=== PATIENT | female | born 1935 | race Caucasian/White ===

== ENCOUNTER → 2019-06-27 17:19 | Outpatient (BNVA) | payer MEDICARE, OTHER, SELFPAY | PROVIDERS: Family Provider Nurse Practitioner Family; Visit Provider Nurse Practitioner Family | DX: I10 Essential (primary) hypertension (principal); Z79.01 Long term (current) use of anticoagulants | CPT/HCPCS: 80053; 80061; 84443; 85025; 85610 ==

== ENCOUNTER → 2019-09-26 12:15 | Outpatient (BNVA) | payer MEDICARE, OTHER, SELFPAY | PROVIDERS: Family Provider Nurse Practitioner Family; Visit Provider Nurse Practitioner Family | DX: I10 Essential (primary) hypertension (principal); Z23 Encounter for immunization; Z12.39 Encounter for other screening for malignant neoplasm of breast; J43.9 Emphysema, unspecified; I82.509 Chronic embolism and thrombosis of unspecified deep veins of unspecified lower extremity; Z79.01 Long term (current) use of anticoagulants | CPT/HCPCS: 80053; 85025 ==

== ENCOUNTER 2019-11-08 11:34 | Outpatient (CLI) | payer MEDICARE, OTHER, SELFPAY ==
--- NOTE | 2019-11-08 12:00 | MM_ITS ---
WS: [id number] BILATERAL DIGITAL SCREENING MAMMOGRAPHY WITH CAD CLINICAL INFORMATION: screening mammo HISTORY: Screening mammogram. No current complaints. COMPARISON: None. TECHNIQUE: Bilateral CC and MLO views. FINDINGS: Scattered fibroglandular densities bilaterally.Lucent centered calcifications. Punctate calcification s. Vascular calcification. Focal ovoid asymmetric density lower inner left breast posterior depth. Re commend spot compression views and ultrasound if persistent. Right breast is unremarkable. MM/[place] [id number] IMPRESSION: BI-RADS: 0-Incomplete: Need additional imaging evaluation FOLLOW UP: Need Additional Imaging
== END 2019-11-08 11:35 | disposition home or self-care (01) ==
LOC: RADSHAW 11:39
PROVIDERS: PCP Nurse Practitioner Family; Visit Provider Nurse Practitioner Family
DX: Z12.31 Encounter for screening mammogram for malignant neoplasm of breast (principal)
CPT/HCPCS: 77067

== ENCOUNTER 2019-12-12 09:30 | Outpatient (CLI) | payer MEDICARE, OTHER, SELFPAY ==
--- NOTE | 2019-12-12 12:00 | MM_ITS ---
WS: [id number] LEFT DIGITAL MAMMOGRAPHY WITH CAD CLINICAL INFORMATION: abnormal mammogram COMPARISON: None. TECHNIQUE: 3 views of the left breast were obtained. FINDINGS: Scattered fibroglandular densities of the left breast. Lucent centered and coarse calcifications. Sta ble ovoid asymmetric density lower inner quadrant left breast posterior depth. ULTRASOUND BREAST LEFT TECHNIQUE: Ultrasound left breast focused area of concern. CLINICAL INFORMATION: abnormal mammogram COMPARISON: November 08, 2019 FINDINGS: Ultrasound left breast at the [place]. Tiny incidental cyst at the 9:00 position measuring 6.6 x 2.6 m m. This has a benign appearance. No other abnormalities. Recommend return to annual screening mammogr aphy. MM/[place] [id number] IMPRESSION: BI-RADS: 2-Benign FOLLOW UP: 1 Year Follow-up Recommend return to annual screening mammography.
--- NOTE | 2019-12-12 12:45 | US_ITS ---
WS: [id number] LEFT DIGITAL MAMMOGRAPHY WITH CAD CLINICAL INFORMATION: abnormal mammogram COMPARISON: None. TECHNIQUE: 3 views of the left breast were obtained. FINDINGS: Scattered fibroglandular densities of the left breast. Lucent centered and coarse calcifications. Sta ble ovoid asymmetric density lower inner quadrant left breast posterior depth. ULTRASOUND BREAST LEFT TECHNIQUE: Ultrasound left breast focused area of concern. CLINICAL INFORMATION: abnormal mammogram COMPARISON: November 08, 2019 FINDINGS: Ultrasound left breast at the [place]. Tiny incidental cyst at the 9:00 position measuring 6.6 x 2.6 m m. This has a benign appearance. No other abnormalities. Recommend return to annual screening mammogr aphy. US/US breast LT limited* [id number] IMPRESSION: BI-RADS: 2-Benign FOLLOW UP: 1 Year Follow-up Recommend return to annual screening mammography.
== END 2019-12-12 09:31 | disposition home or self-care (01) ==
PROVIDERS: PCP Nurse Practitioner Family; Visit Provider Nurse Practitioner Family
DX: R92.8 Other abnormal and inconclusive findings on diagnostic imaging of breast (principal)
CPT/HCPCS: 76642; 77065

== ENCOUNTER 2019-12-18 14:57 | Outpatient (CLI) | payer MEDICARE, OTHER, SELFPAY ==
--- NOTE | 2019-12-18 15:45 | USCV_ITS ---
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 Technologist: Mary Webb [place]am [place] [facility] [place] Indication: LEG PAIN Risk Factors: Previous Vascular Surgery: RIGHT LEFT BP: 183.0 / 99.00 BP: 165.0/ 98.00 0 0 Waveform Velocity (cm/s) Velocity (cm/s) Waveform Biphasic 109.2 Iliac Prox 112.6 Biphasic Biphasic 121.2 Iliac Mid 76.6 Biphasic Biphasic 106.6 Iliac Distal 119.3 Biphasic Biphasic 61.8 DATA WAREHOUSE MANAGER 98.7 Biphasic Biphasic 45.5 SFA Prox 96.0 Biphasic Biphasic 37.3 SFA Mid 102.9 Biphasic Biphasic SFA Dist Biphasic 72.4 99.7 Biphasic 47.5 POP 42.4 Biphasic Biphasic 32.4 SUPERVISOR [employer] 37.5 Biphasic Biphasic 36.2 DPA 53.2 Biphasic 0.7 JOYCE 1.0 FINDINGS RT SUPERVISOR [employer] = 127 RT DPA = 120 LT SUPERVISOR P[employer] FARM = 178, LT DPA = 170 Mild to moderate scattered plaques in the iliac and femoral arteries , bilaterally Abnormal resting JOYCE on the right side Normal resting JOYCE on the left side CONCLUSIONS 1. Features of mild to moderate peripheral artery disease on the right side 2. No significant arterial obstruction on the left side Dr Nancy Galeano MD [facility] (Electronically Signed) Final Date: 18 December 2019 21:17 S
== END 2019-12-18 14:58 | disposition home or self-care (01) ==
LOC: RAD 15:02
PROVIDERS: PCP Nurse Practitioner Family; Visit Provider Nurse Practitioner Family
DX: M79.604 Pain in right leg (principal); M79.605 Pain in left leg
CPT/HCPCS: 93925

== ENCOUNTER → 2020-05-07 14:47 | Outpatient (BNVA) | payer MEDICARE, OTHER, SELFPAY | PROVIDERS: PCP Nurse Practitioner Family; Visit Provider Nurse Practitioner Family | DX: I82.509 Chronic embolism and thrombosis of unspecified deep veins of unspecified lower extremity (principal); M79.605 Pain in left leg; J43.2 Centrilobular emphysema | CPT/HCPCS: 85610 ==

== ENCOUNTER → 2020-05-26 11:00 | Outpatient (BNVA) | payer MEDICARE, OTHER, SELFPAY | PROVIDERS: PCP Nurse Practitioner Family; Visit Provider Specialist | DX: R20.0 Anesthesia of skin (principal); R20.2 Paresthesia of skin; Z87.891 Personal history of nicotine dependence | CPT/HCPCS: 95908 ==

== ENCOUNTER → 2020-05-29 11:00 | Outpatient (BNVA) | payer MEDICARE, OTHER, SELFPAY | PROVIDERS: PCP Nurse Practitioner Family; Visit Provider Nurse Practitioner Family | DX: Z79.01 Long term (current) use of anticoagulants (principal) | CPT/HCPCS: 85610 ==

== ENCOUNTER → 2020-06-09 13:57 | Outpatient (BNVA) | payer MEDICARE, OTHER, SELFPAY | PROVIDERS: PCP Nurse Practitioner Family; Visit Provider Nurse Practitioner Family | DX: Z79.01 Long term (current) use of anticoagulants (principal) | CPT/HCPCS: 85610 ==

== ENCOUNTER 2020-07-21 06:00 | Outpatient (RCR) | payer MEDICARE, OTHER, SELFPAY | END 2020-07-27 23:59 | disposition home or self-care (01) | LOC: TPT 06:00 | PROVIDERS: PCP Nurse Practitioner Family; Referring Provider Nurse Practitioner Family; Visit Provider Nurse Practitioner Family | DX: M79.605 Pain in left leg (principal) | CPT/HCPCS: 85610; 97110; 97162 ==

== ENCOUNTER → 2020-07-21 12:19 | Outpatient (BNVA) | payer MEDICARE, OTHER, SELFPAY | PROVIDERS: PCP Nurse Practitioner Family | DX: Z79.01 Long term (current) use of anticoagulants (principal) | CPT/HCPCS: 85610 ==

== ENCOUNTER 2020-07-28 06:00 | Outpatient (RCR) | payer MEDICARE, OTHER, SELFPAY | END 2020-08-26 23:59 | disposition home or self-care (01) | LOC: TPT 06:00 | PROVIDERS: PCP Nurse Practitioner Family; Referring Provider Nurse Practitioner Family; Visit Provider Nurse Practitioner Family | DX: M79.605 Pain in left leg (principal) | CPT/HCPCS: 97110 ==

== ENCOUNTER → 2020-07-29 14:15 | Outpatient (BNVA) | payer MEDICARE, OTHER, SELFPAY | PROVIDERS: PCP Nurse Practitioner Family; Visit Provider Nurse Practitioner Family | DX: I82.509 Chronic embolism and thrombosis of unspecified deep veins of unspecified lower extremity (principal) | CPT/HCPCS: 85610 ==

== ENCOUNTER 2020-08-27 06:00 | Outpatient (RCR) | payer MEDICARE, OTHER, SELFPAY | END 2020-09-26 23:59 | disposition home or self-care (01) | LOC: TPT 06:00 | PROVIDERS: PCP Nurse Practitioner Family; Referring Provider Nurse Practitioner Family; Visit Provider Nurse Practitioner Family | DX: M79.605 Pain in left leg (principal) | CPT/HCPCS: 97110; 97164 ==

== ENCOUNTER → 2020-09-03 13:30 | Outpatient (BNVA) | payer MEDICARE, OTHER, SELFPAY | PROVIDERS: PCP Nurse Practitioner Family; Visit Provider Internal Medicine Pulmonary Disease | DX: Z01.818 Encounter for other preprocedural examination (principal); Z20.822 Contact with and (suspected) exposure to COVID-19 | CPT/HCPCS: 87635 ==

== ENCOUNTER 2020-09-09 10:40 | Outpatient (CLI) | payer MEDICARE, OTHER, SELFPAY ==
--- NOTE | 2020-09-09 13:55 | PFTS_ITS ---
Date of Study:09/09/20 Date of Dictation: MECHANICS: Forced vital capacity (FVC) is normal. Forced expiratory volume in one second (FEV1) is reduced. FEV1/FVC is reduced. FLOW VOLUME LOOP: Reduced flow at all lung volumes with significant scooping. LUNG VOLUMES: Not measured DIFFUSING CAPACITY FOR CARBON MONOXIDE: Severely reduced. INTERPRETATION: The pulmonary function tests are consistent with moderate airflow obstruction. There is no significant postbronchodilator response. Gas exchange (DLCO) is disproportionately and severely reduced. MTDD
== END 2020-09-09 10:41 | disposition home or self-care (01) ==
LOC: RT 10:46
PROVIDERS: PCP Nurse Practitioner Family; Visit Provider Internal Medicine Pulmonary Disease
DX: R06.00 Dyspnea, unspecified (principal)
CPT/HCPCS: 94060; 94618; 94729

== ENCOUNTER → 2020-09-17 16:44 | Outpatient (BNVA) | payer MEDICARE, OTHER, SELFPAY | PROVIDERS: PCP Nurse Practitioner Family; Visit Provider Nurse Practitioner Family | DX: N39.0 Urinary tract infection, site not specified (principal) | CPT/HCPCS: 81003; 87077; 87086; 87184 ==

== ENCOUNTER 2020-09-18 13:44 | Outpatient (CLI) | payer MEDICARE, OTHER, SELFPAY ==
--- NOTE | 2020-09-18 14:30 | CT_ITS ---
WS: [id number] CT CHEST TECHNIQUE: Noncontrast CT of the chest with coronal and sagittal reformatted images. CLINICAL INFORMATION: SOB COMPARISON: None. DLP: 320.[address] scans at [facility] use at least one of these dose optimization techniques: automat ed exposure control; mA and/or kV adjustment per patient size (includes targeted exams where dose is matched to clinical indication); or iterative reconstruction. FINDINGS: Advanced chronic emphysematous changes. Left lower lobe opacity has progressed from the prior CTA dileep suring 11 x 11 mm. Associated feeding vessel. Fibrosis and subsegmental atelectasis right lower lobe along the right fissure with parenchymal scarr ing and calcification. Noncalcified nodule right lower lobe measuring 3.4 mm. Fibrotic appearing opac ity in the superior segment right lower lobe is unchanged since 2019. Fibrosis in the lung apices. Slightly ectatic ascending thoracic aorta measuring 3.1 cm unchanged. Aortic calcification. Coronary calcification. No mediastinal or hilar lymphadenopathy. Adrenal glands are normal. Small esophageal hiatal hernia. CT/CT chest wo con [id number] IMPRESSION: 1. Left lower lobe opacity measuring 11 x 11 mm enlarged since 2019 suspicious for neoplasm. Associated feeding vessel. This is not easily amenable to CT-shannan ded biopsy due to location directly behind rib, This can be further evaluated w ith PET/CT. 2. Advanced chronic emphysematous changes. 3. Fibrotic appearing opacity in the super segment right lower lobe is unchang ed since 2019 4. Right hilar traction bronchiectasis with pleural thickening and calcificati on along the right fissure unchanged. 5. Tiny noncalcified nodule right lower lobe measuring 3.4 mm. Recommend 12 mo nth follow-up. 6. No mediastinal or hilar lymphadenopathy. 7. Stable slightly ectatic ascending thoracic aorta.
--- NOTE | 2020-09-18 15:45 | USCV_ITS ---
Kacie Quispe Age: 85 Gender: F : 1935 Exam Date: 09/18/2020 14:09 Ordering Phys: Osvaldo Hooper MD Technologist: Sara Cline Exam Location: [facility] [place] Indication: ASSESS LEFT VENTRICULAR FUNCTION BP: 119 / 68 HR: 77 Rhythm: Sinus Technical Quality: Adequate MEASUREMENTS (Male / Female) Normal Values 2D ECHO LV Diastolic Diameter PLAX 3.1 cm 4.2 - 5.9 / 3.9 - 5.3 cm LV Systolic Diameter PLAX 2.0 cm LV Chamber Size 2.7 cm IVS Diastolic Thickness 0.9 cm 0.6 - 1.0 / 0.6 - 0.9 cm IVS Systolic Thickness 1.4 cm LVPW Diastolic Thickness 1.1 cm 0.6 - 1.0 / 0.6 - 0.9 cm LVPW Systolic Thickness 1.6 cm RV Chamber Size 3.1 cm LVOT Diameter 1.8 cm LV Ejection Fraction 2D Teich 67.6 % LV Ejection Fraction MOD 2C 16.8 % LV Ejection Fraction 2C AL 19.3 % LA Diameter 2.7 cm LA Width 1.9 cm LA Height 2.3 cm RA Width 2.9 cm RA Height 4.4 cm Aorta at Sinotubular Diameter 2.7 cm M-MODE LV Diastolic Diameter MM 4.0 cm 4.2 - 5.9 / 3.9 - 5.3 cm LV Systolic Diameter MM 2.9 cm LV Ejection Fraction MM Teich 56.4 % IVS Diastolic Thickness MM 0.9 cm 0.6 - 1.0 / 0.6 - 0.9 cm IVS Systolic Thickness MM 0.9 cm LVPW Diastolic Thickness MM 1.0 cm 0.6 - 1.0 / 0.6 - 0.9 cm LVPW Systolic Thickness MM 1.3 cm Aortic Annulus Diameter 3.4 cm LA Ao Ratio MM 0.8 MV E Point Septal Separation 0.3 cm DOPPLER AV Peak Velocity 120.5 cm/s LVOT Peak Velocity 75.8 cm/s AV Area Cont Eq vti 1.8 cm squared AV Area Cont Eq pk 1.6 cm squared MV Area PHT 3.5 cm squared Mitral E to A Ratio 1.3 MV E' Velocity 57.0 cm/s Mitral E to MV E' Ratio 7.5 Mitral E to LV E' Lateral Ratio 7.1 Mitral E to LV E' Septal Ratio 7.9 TR Peak Velocity 301.9 cm/s TR Peak Gradient 36.5 mmHg TR Mean Velocity 225.5 cm/s TR Mean Gradient 22.4 mmHg TR Velocity Time Integral 85.5 cm TV Peak E Velocity 53.0 cm/s Right Atrial Pressure 3.0 mmHg Pulmonary Artery Systolic Pressu 39.5 mmHg PV Peak Velocity 49.0 cm/s RV Acceleration Time 0.2 s RV Ejection Time 0.3 s RV AcT/ET 0.7 FINDINGS Left Ventricle Normal left ventricular size, systolic function and wall thickness, with no regional wall motion abnormalities. Left ventricular ejection fraction is estimated at 60-65 %. Normal diastolic function. Right Ventricle Normal right ventricular size and systolic function. Right ventricular systolic pressure 43 mmHg. Right Atrium Upper normal right atrial size. Right atrial pressure estimated at 3 mm Hg. Left Atrium Normal left atrial size. Mitral Valve Thickened mitral valve. Bilateral mitral valve leaflet prolapse (anterior > posterior). No mitral valve stenosis. Mild to moderate posteriorly directed mitral valve regurgitation. Aortic Valve Structurally normal trileaflet aortic valve. No aortic valve stenosis. No aortic valve regurgitation. Tricuspid Valve Structurally normal tricuspid valve. Mild tricuspid valve regurgitation. Pulmonic Valve Pulmonic valve not well visualized. Pericardium No pericardial effusion. Aorta Normal size aortic root and proximal ascending aorta. Normal sized inferior vena cava. CONCLUSIONS 1. Normal left ventricular size, systolic function and wall thickness, with no regional wall motion abnormalities. Left ventricular ejection fraction is estimated at 60-65 %. Normal diastolic function. 2. Normal right ventricular size and systolic function. 3. Bilateral mitral valve leaflet prolapse (anterior > posterior). Mild to moderate posteriorly directed mitral valve regurgitation. 4. Mild pulmonary hypertension with pulmonary artery pressure estimated at 43 mm Hg. 5. No prior similar studies to compare. Claire Quintero MD (Electronically Signed) Final Date: 19 September 2020 09:50 S
== END 2020-09-18 13:45 | disposition home or self-care (01) ==
LOC: RAD 13:49
PROVIDERS: PCP Nurse Practitioner Family; Visit Provider Internal Medicine Pulmonary Disease
DX: R06.02 Shortness of breath (principal); I37.1 Nonrheumatic pulmonary valve insufficiency; I27.0 Primary pulmonary hypertension
CPT/HCPCS: 71250; 93306

== ENCOUNTER → 2020-10-27 10:06 | Outpatient (BNVA) | payer MEDICARE, OTHER, SELFPAY | PROVIDERS: PCP Nurse Practitioner Family; Visit Provider Anesthesiology Pain Medicine | DX: G89.29 Other chronic pain (principal); M51.17 Intervertebral disc disorders with radiculopathy, lumbosacral region; R07.81 Pleurodynia; Z79.891 Long term (current) use of opiate analgesic | CPT/HCPCS: 99205 ==

== ENCOUNTER → 2021-01-14 09:46 | Outpatient (BNVA) | payer MEDICARE, OTHER, SELFPAY | PROVIDERS: PCP Nurse Practitioner Family; Visit Provider Anesthesiology Pain Medicine | DX: R07.89 Other chest pain (principal); R07.81 Pleurodynia; J43.2 Centrilobular emphysema; M54.9 Dorsalgia, unspecified; M79.605 Pain in left leg; Z79.891 Long term (current) use of opiate analgesic; Z87.891 Personal history of nicotine dependence | CPT/HCPCS: 99214 ==

== ENCOUNTER → 2021-03-11 09:48 | Outpatient (BNVA) | payer MEDICARE, OTHER, SELFPAY | PROVIDERS: PCP Nurse Practitioner Family; Visit Provider Anesthesiology Pain Medicine | DX: R07.89 Other chest pain (principal); R07.81 Pleurodynia; M79.605 Pain in left leg; J43.2 Centrilobular emphysema; Z79.899 Other long term (current) drug therapy | CPT/HCPCS: 99213 ==

== ENCOUNTER 2021-03-15 11:24 | Outpatient (CLI) | payer MEDICARE, OTHER, SELFPAY ==
--- NOTE | 2021-03-15 11:00 | CT_ITS ---
WS: [id number] CT CHEST TECHNIQUE: Noncontrast CT of the chest with coronal and sagittal reformatted images. CLINICAL INFORMATION: re-eval LLL lung nodule COMPARISON: PET/CT September [address] chest September 18, 2020 DLP: 564.[address] scans at [facility] use at least one of these dose optimization techniques: automated e xposure control; mA and/or kV adjustment per patient size (includes targeted exams where dose is matc hed to clinical indication); or iterative reconstruction. FINDINGS: Again seen is the FDG avid left lower lobe groundglass nodule previously measuring 1.1 x 1.1 cm and t jose measuring 1.2 x 1.1 cm not significantly changed since the recent PET/CT and CT chest August 2020. Findings remain suspicious for neoplasm. Advanced chronic emphysematous changes. Stable right hilar traction bronchiectasis and pleural thicke rochelle with calcification along the right fissure. Stable tiny noncalcified nodule right lower lobe dileep suring 3.4 mm is stable. No mediastinal or hilar lymphadenopathy. Ectatic ascending thoracic aorta is unchanged. Small esophageal hiatal hernia. Fibrotic opacity in the super segment right lower lobe is stable since 2018. Low-attenuation cystic-appearing lesion head of the pancreas measuring 11 mm is n ot FDG avid on the recent PET/CT and appears stable since January 16, [address]/CT chest wo con [id number] IMPRESSION: 1. Previously described groundglass nodule in the the left lower lobe is not s ignificantly changed and remain suspicious for bronchoalveolar carcinoma. 2. No other significant changes compared to previous. 3. No mediastinal or hilar lymphadenopathy. 4. Tiny noncalcified nodule right lower lobe measuring 3.4 mm is stable. 5. Stable right hilar traction bronchiectasis. 6. Advanced chronic emphysematous changes. 7. Low-attenuation cystic-appearing lesion head of the pancreas measuring 11 m m is not FDG avid on the recent PET/CT and appears stable since January 16 19 CTA abdomen pelvis. This can be followed up with contrast-enhanced CT abdome n pelvis or MRI pancreas in 6 months.
== END 2021-03-15 11:25 | disposition home or self-care (01) ==
PROVIDERS: PCP Nurse Practitioner Family; Visit Provider Internal Medicine Pulmonary Disease
DX: R91.1 Solitary pulmonary nodule (principal); J47.9 Bronchiectasis, uncomplicated; K86.9 Disease of pancreas, unspecified
CPT/HCPCS: 71250

== ENCOUNTER 2021-04-06 16:57 | Inpatient (IN) | payer MEDICARE, OTHER, SELFPAY ==
[2021-04-06 16:58] VITALS: BP 189/87; PULSE 153; RESP 23; TEMP 36.9; O2SAT 96; BMI 17.9
--- NOTE | 2021-04-06 17:08 | ECG_ITS ---
[facility] Test Date: 2021-04-06 Pat Name: Kacie Quispe Department: Room: Gender: Female Sock Ironer: : 1935 Requested By: Tyrel Falcon Order Number: [id number] Erwin MD: Micky Raygoza M.D. Measurements Intervals [place] Rate: 107 P: CT: QRS: 102 QRSD: 84 T: 13 QT: 325 QTc: 434 Interpretive Statements ATRIAL FIBRILLATION WITH RAPID VENTRICULAR RESPONSE RIGHT AXIS DEVIATION [QRS AXIS > 100] LOW QRS VOLTAGE IN PRECORDIAL LEADS [QRS DEFLECTION < 1.0 mV IN CHEST LEADS] POSSIBLE RIGHT VENTRICULAR CONDUCTION DELAY [RSR (QR) IN V1/V2] ANTEROSEPTAL MYOCARDIAL INFARCTION , PROBABLY OLD [40+ ms Q WAVE IN V1-V4] No previous ECG available for comparison Electronically Signed On 04-06-2021 20:53:55 LACQUER SPRAYER by Micky Raygoza M.D. [id number]
--- NOTE | 2021-04-06 17:08 | XRR_ITS ---
PROCEDURE INFORMATION: Exam: XR Chest Exam date and time: 04/06/2021 5:08 PM Age: 85 years old Clinical indication: Shortness of breath; Prior surgery; Surgery date: 6+ months; Patient HX: Lung cancer; Additional info: A fib TECHNIQUE: Imaging protocol: XR of the chest. Views: 1 view. COMPARISON: CT chest con [id number] 03/15/2021 11:58 AM FINDINGS: Lungs: Severe emphysema. Mild atelectasis in the lung bases. Right partial pneumonectomy. Opacities within the bilateral lower lobes, noted on the CT study, are not well appreciated on this study. Pleural spaces: Unremarkable. No pleural effusion. No pneumothorax. Heart/Mediastinum: Unremarkable. No cardiomegaly. Bones/joints: Unremarkable. XR/XR chest 1V portable [id number] IMPRESSION: 1. No acute findings. 2. The bilateral lower lobe opacities identified on the CT prior study are not appreciated on this exam and should be followed with CT imaging.
--- NOTE | 2021-04-06 17:09 | ED_ITS ---
HPI - Weakness General: Chief complaint: ER Hold Stated complaint: AFIB Time Seen by Provider: 04/06/21 16:58 History of Present Illness: 85-year-old female presents emergency room with complaints of rapid heart rate. She has had rapid irregular heart rate for last couple of days. She is on anticoagulants for previous DVT she is not previously been known to have any atrial fibrillation. She is not had any chest pain. She has noticed decreased stamina increasing shortness of breath with minimal activity. No known history of coronary artery disease. Patient has COPD and has 2 nodules that are being watched by serial CT. She denies any recent hemoptysis. MD Complaint: generalized weakness Onset (ago): day(s) Duration: constant Location: generalized Severity: moderate Relieving factors: none Exacerbating factors: none Associated symptoms: Reports nausea and short of breath; Denies chest pain, chills, confusion, melena, decreased appetite, diaphoresis, dysuria, easy bruising, fever(s), headache(s), myalgias, rash, syncope or vomiting Review of Systems Const: Denies: fever(s), chills or diaphoresis ENMT: Denies: throat pain, ear or mastoid pain, nasal discharge or nasal congestion Card: Denies: chest pain or syncope Resp: Denies: dyspnea, productive cough or non-productive cough GI: Reports: nausea; Denies: vomiting or melena : Denies: dysuria Skin/Breast: Denies: rash or pruritus Neuro: Denies: headache(s) or confusion Jamin/Lymph: Denies: easy bruising PFS ED PFSH: Medical History Brain aneurysm History of COPD History of DVT (deep vein thrombosis) History of emphysema History of hypertension Surgical History 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 Family History Other CAD (coronary artery disease) Social History Smoking and tobacco status: former smoker Quit status (tobacco): has quit using tobacco Year quit tobacco: 1992 - 0.5 PPD x 30 Years Second hand smoke exposure: Yes Smoking risk assessment/counseling performed?: No Alcohol intake: never Desire information about alcohol rehabilitation?: No Counseling given: No Desire information about substance/drug rehabilitation?: No Counseling given: No Lives independently: Yes Household members: friend(s) Housing: House Marital status: / service: No Current occupational status: retired 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 Pets and animals: Yes History of recent travel: No Current gender identity: Female Special alyx needs: No Physical Exam Const: GENERAL APPEARANCE: cooperative and comfortable ORIENTATION/CONSCIOUSNESS: Yes awake, Yes oriented to person, Yes oriented to place and Yes oriented to time HENMT: COMMON NORMALS: normocephalic, atraumatic and hearing grossly normal bilaterally HEAD & SCALP: normocephalic and atraumatic Resp: COMMON NORMALS: normal respiratory effort, No retractions, No use of accessory muscles and clear to auscultation bilaterally AUSCULTATION: clear to auscultation bilaterally Cardio: RATE: tachycardic RHYTHM: abnormal rhythm irregularly irregular GI: COMMON NORMALS: Soft to palpation and No hepatosplenomegaly present AUSCULTATION: Yes normoactive bowel sounds PALPATION: Yes Soft to palpation, No Tenderness to palpation present (GI), No Guarding due to palpation present (GI) and Yes No hepatosplenomegaly present Extremity: COMMON NORMALS: normal to inspection, capillary refill normal, no clubbing, cyanosis or edema, no calf tenderness and no pedal edema Neuro: SENSORIUM/ORIENTATION: Yes oriented to person, Yes oriented to place and Yes oriented to time Skin: COMMON NORMALS: no rashes or lesions noted GENERAL SKIN EXAM: no rashes or lesions noted Course Vital Signs: Vital signs: Vital Signs Temperature 98.4 F 04/06/21 16:58 Pulse Rate 80 04/07/21 07:10 Respiratory Rate 16 04/07/21 07:10 Blood Pressure 124/45 04/07/21 07:10 Pulse Oximetry 100 04/07/21 07:10 MDM - Weakness Medical Decision Making Patient has A. fib with RVR this improved with Cardizem on a drip rate is now controlled. She also has COPD but she not have any significant exacerbation.no focal neurologic deficits are noted. She is on chronic anticoagulation with warfarin for previous DVTs we will continue that discussed with hospitalist orders written Medical Records I reviewed the patient's medical records. Lab Data I reviewed the patient's lab results. : 04/07/21 04:16 04/07/21 04:16 Radiology Impressions Chest X-Ray 04/06/21 17:08 IMPRESSION: 1. No acute findings. 2. The bilateral lower lobe opacities identified on the CT prior study are not appreciated on this exam and should be followed with CT imaging. Head CT 04/06/21 23:59 IMPRESSION: 1. Left TMJ arthroplasty. 2. Left craniectomy with left aneurysm clip. 3. Right craniectomy with right aneurysm clip. 4. Mild left ethmoid sinus disease. 5. No acute intracranial findings. Laboratory Results WBC 8.7 10^3/uL (4.0-10.0) 04/06/21 17:10 RBC 5.17 10^6/uL (4.1-5.3) 04/06/21 17:10 Hgb 15.5 g/dL (11.5-15.3) H 04/06/21 17:10 Hct 48.0 % (37.0-47.0) H 04/06/21 17:10 MCV 92.8 fl (81-99) 04/06/21 17:10 MCH 30.0 pg (28.0-34.0) 04/06/21 17:10 MCHC 32.3 g/dL (30.0-36.0) 04/06/21 17:10 RDW 13.8 % (12.1-15.1) 04/06/21 17:10 Plt Count 247 10^3/cmm (130-400) 04/06/21 17:10 MPV 11.8 fL (7.4-10.4) H 04/06/21 17:10 Neut % (Auto) 69.5 % 04/06/21 17:10 Lymph % (Auto) 17.7 % 04/06/21 17:10 [place] % (Auto) 10.1 % 04/06/21 17:10 Eos % (Auto) 1.5 % 04/06/21 17:10 Baso % (Auto) 0.9 % 04/06/21 17:10 Neut # (Auto) 6.02 10^3/uL (1.8-7.7) 04/06/21 17:10 Lymph # (Auto) 1.5 10^3/uL (0.8-4.8) 04/06/21 17:10 [place] # (Auto) 0.9 10^3/uL (0.2-0.9) 04/06/21 17:10 Eos # (Auto) 0.1 10^3/uL (0.0-0.8) 04/06/21 17:10 Baso # (Auto) 0.1 10^3/uL (0.0-0.1) 04/06/21 17:10 Nucleated RBC % (auto) 0 % 04/06/21 17:10 Nucleated RBCs # 0.0 /100WBC 04/06/21 17:10 PT 26.10 SECONDS (12.1-14.9) H 04/06/21 17:58 INR 2.34 (0.8-1.2) H 04/06/21 17:58 Sodium 136 mmol/L (136-145) 04/06/21 17:10 Potassium 3.6 mmol/L (3.5-5.1) 04/06/21 17:10 Chloride 95 mmol/L (98-107) L 04/06/21 17:10 Carbon Dioxide 20 mmol/L (22-29) L 04/06/21 17:10 Anion Gap 24.6 (5-19) H 04/06/21 17:10 BUN 50 mg/dL (8-23) H 04/06/21 17:10 Creatinine 1.5 mg/dL (0.5-0.9) H 04/06/21 17:10 GFR Calculation Not Reportable 04/06/21 17:10 Glucose 104 mg/dL (65-115) 04/06/21 17:10 Calculated Osmolality 296 mOsm/kg (285-295) H 04/06/21 17:10 Calcium 10.5 mg/dL (8.5-10.5) 04/06/21 17:10 Phosphorus 3.2 mg/dL (2.5-4.5) 04/06/21 17:10 Magnesium 2.2 mg/dL (1.7-2.3) 04/06/21 17:10 Total Bilirubin 0.5 mg/dL (0.15-1.2) 04/06/21 17:10 AST 24 U/L (0-32) 04/06/21 17:10 ALT 8 U/L (0-33) 04/06/21 17:10 Alkaline Phosphatase 66 IU/L (35-105) 04/06/21 17:10 Creatine Kinase 67 U/L (26-192) 04/06/21 17:10 Troponin T Baseline 23 ng/L (0-10) H 04/06/21 17:10 NT-Pro-B Natriuret Pep 4294 pg/mL (0-450) H 04/06/21 17:10 Total Protein 7.1 g/dL (6.6-8.7) 04/06/21 17:10 Albumin 4.6 g/dL (3.5-5.2) 04/06/21 17:10 Globulin 2.5 g/dL (1.3-4.6) 04/06/21 17:10 Triglycerides 234 mg/dL (0-150) H 04/06/21 17:10 Cholesterol 408 mg/dL (0-200) H 04/06/21 17:10 LDL Cholesterol, Calc 304 mg/dL (50-129) H 04/06/21 17:10 HDL Cholesterol 57 mg/dL (60-100) L 04/06/21 17:10 LDL/HDL Ratio 5.33 RATIO (0.00-3.22) H 04/06/21 17:10 Cholesterol/HDL Ratio 7.16 mg/dL (0.0-4.40) H 04/06/21 17:10 TSH 3.40 uIU/mL (0.27-4.20) 04/06/21 17:10 Discharge Plan Discharge Patient Disposition: Admitted As Inpatient Admit Provider: Eusebio Waller Clinical Impression: Atrial fibrillation with RVR, Anticoagulated on warfarin, Chronic deep vein thrombosis (DVT), Long-term use of high-risk medication Condition: Stable Coding Level of Care Code ED Agricultural Appraiser for Etta Martinez
[2021-04-06 17:28] LABS: Basophils # 0.1 10^3/uL (0.0-0.1); Basophils % 0.9 %; Eosinophils # 0.1 10^3/uL (0.0-0.8); Eosinophils % 1.5 %; Hemoglobin 15.5 g/dL (11.5-15.3); Lymphocytes # 1.5 10^3/uL (0.8-4.8); Lymphocytes % 17.7 %; Mean Corpuscular HGB Conc 32.3 g/dL (30.0-36.0); Mean Corpuscular Volume 92.8 fl (81-99); Mean Platelet Volume 11.8 fL (7.4-10.4); Monocytes # 0.9 10^3/uL (0.2-0.9); Monocytes % 10.1 %; Neutrophils # 6.02 10^3/uL (1.8-7.7); Neutrophils % 69.5 %; Nucleated Red Blood Cells % 0 %; Platelet Count 247 10^3/cmm (130-400); Red Blood Count 5.17 10^6/uL (4.1-5.3); Red Cell Distribution Width 13.8 % (12.1-15.1); White Blood Count 8.7 10^3/uL (4.0-10.0)
--- NOTE | 2021-04-06 18:20 | PC.NURSE ---
PT PLACED ON CONTINUOUS SPO2, NIBP, AND CM.
[2021-04-06 18:36] LABS: Troponin(5th) Baseline 23 ng/L (0-10)
[2021-04-06 18:48] LABS: INR 2.34 (0.8-1.2)
[2021-04-06 18:52] LABS: Alanine Aminotransferase 8 U/L (0-33); Albumin Level 4.6 g/dL (3.5-5.2); Alkaline Phosphatase 66 IU/L (35-105); Anion Gap 24.6 (5-19); Aspartate Amino Transferase 24 U/L (0-32); Blood Urea Nitrogen 50 mg/dL (8-23); Calcium 10.5 mg/dL (8.5-10.5); Carbon Dioxide 20 mmol/L (22-29); Chloride 95 mmol/L (98-107); Creatine Phosphokinase 67 U/L (26-192); Globulin 2.5 g/dL (1.3-4.6); Glucose 104 mg/dL (65-115); Osmolality Calculated 296 mOsm/kg (285-295); Potassium 3.6 mmol/L (3.5-5.1); Sodium 136 mmol/L (136-145); Total Bilirubin 0.5 mg/dL (0.15-1.2); Total Protein 7.1 g/dL (6.6-8.7)
--- NOTE | 2021-04-06 19:19 | PC.NURSE ---
REPORT GIVEN TO DEYA SANCHEZ ASSUMED CARE.
--- NOTE | 2021-04-06 20:20 | PM.HP ---
Providers/Chief Complaint Primary Care Provider: NAGI Venegas Chief Complaint: AFIB History of Present Illness Kacie Quispe is a 85 year old female with past medical history of severe emphysema, COPD, hypertension, lung nodule status post resection in 2011, history of brain aneurysm status post clipping, history. 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 Patient tells me that dizzy, and has felt her heart racing. She denies any chest pain, does have palpitations, no CAD history, history of CHF. No symptoms related to stroke, no facial, slurring of words, paresthesias, no focal neurologic deficits. No seizure-like episodes. She tells me that the dizziness persisted, no vertigo, no tinnitus, no nausea, vomiting, headache, blurry vision. In the emergency room she was found to have A. fib with RVR, placed on a Cardizem drip, heart rates are in the 90s, there was also reported sinus pauses seen, I have not witnessed any sinus pauses, and patient tells me that she feels a lot better, no shortness of breath currently, on room air, normotensive, no clinical evidence of fluid overload Review of Systems Const: Denies: fever(s), chills, fatigue or malaise Eyes: Denies: change in vision or blurry vision ENMT: Denies: nasal congestion Card: Reports: palpitations, irregular heart rhythm, lightheadedness and pre-syncope; Denies: chest pain, edema, syncope, dyspnea on exertion or orthopnea Resp: Denies: dyspnea, productive cough, non-productive cough or wheezing GI: Denies: abdominal pain, nausea, vomiting, hematemesis, diarrhea, constipation, hematochezia or melena : Denies: flank pain, dysuria or urinary frequency Musc: Denies: neck pain or back pain Skin/Breast: Denies: rash Neuro: Reports: dizziness; Denies: headache(s), numbness in extremities, weakness in extremities, lack of coordination, frequent falls, vertigo, Slurred speech present, difficulty communicating thoughts or seizure-like activity Endo: Denies: polyuria Medications/Allergies Home Medications Medication Instructions Recorded Confirmed Last Taken Type ipratropium 0.5 mg-albuterol 3 mg 3 ml INHALATION Q6H PRN #360 ml 09/14/20 03/11/21 Unknown Rx (2.5 mg base)/3 mL nebulization soln levalbuterol tartrate 45 See Rx Instructions .ROUTE 10/23/20 03/11/21 Unknown Rx mcg/actuation aerosol inhaler .COMPLEX #15 g (Xopenex HFA) warfarin 2 mg tablet See Rx Instructions .ROUTE 12/18/20 03/11/21 Unknown Rx .COMPLEX #90 tab levalbuterol tartrate 45 2 inh INHALATION Q6H #15 g 03/16/21 Unknown Rx mcg/actuation aerosol inhaler (Xopenex HFA) triamterene 37.5 See Rx Instructions .ROUTE 03/23/21 Unknown Rx mg-hydrochlorothiazide 25 mg tablet .COMPLEX #90 tab Allergies Allergy/AdvReac Type Severity Reaction Status Date / Time codeine Allergy Unknown Verified 04/06/21 15:22 PFSH Acute PFSH: Medical History Brain aneurysm History of COPD History of DVT (deep vein thrombosis) History of emphysema History of hypertension Surgical History 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 Family History Other CAD (coronary artery disease) Social History Smoking and tobacco status: former smoker Quit status (tobacco): has quit using tobacco Year quit tobacco: 1993 - 0.5 PPD x 30 Years Second hand smoke exposure: Yes Smoking risk assessment/counseling performed?: No Alcohol intake: never Desire information about alcohol rehabilitation?: No Counseling given: No Desire information about substance/drug rehabilitation?: No Counseling given: No Lives independently: Yes Household members: friend(s) Housing: House Marital status: / service: No Current occupational status: retired 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 Pets and animals: Yes History of recent travel: No Current gender identity: Female Special alyx needs: No Vitals/I&O/Wt Last Vital Signs Temp 98.4 F 04/06/21 16:58 Pulse 153 H 04/06/21 16:58 Resp 23 H 04/06/21 16:58 BP 189/87 04/06/21 16:58 Pulse Ox 96 04/06/21 16:58 04/06/21 04/06/21 04/06/21 06:59 14:59 22:59 Intake Total 1.083 / 1.083 Balance 1.083 / 1.083 Weight last 48 hrs Weight 43.091 kg Physical Exam Const: COMMON NORMALS: no acute distress and patient oriented x3 HENMT: COMMON NORMALS: normocephalic HEAD & SCALP: normocephalic Eye: COMMON NORMALS: Equal, round and reactive pupils present Neck/C-Spine: COMMON NORMALS: no JVD Lymph: LYMPHATIC: no lymphadenopathy noted Chest: COMMONS NORMALS: normal inspection of the chest Resp: COMMON NORMALS: normal respiratory effort, No retractions, No use of accessory muscles and clear to auscultation bilaterally AUSCULTATION: clear to auscultation bilaterally Cardio: COMMON NORMALS: no JVD, S1 normal heart sound present and S2 normal heart sound present RATE: tachycardic RHYTHM: abnormal rhythm HEART SOUNDS: S1 normal heart sound present and S2 normal heart sound present GI: COMMON NORMALS: Normal to inspection, nondistended, normoactive bowel sounds present, Soft to palpation, non-tender, No hepatosplenomegaly present, no masses and no bruits PALPATION: Yes Soft to palpation and Yes No hepatosplenomegaly present Extremity: COMMON NORMALS: capillary refill normal, no clubbing, cyanosis or edema, no calf tenderness and no pedal edema Neuro: COMMON NORMALS: patient oriented x3 Psych: COMMON NORMALS: mental status grossly normal Data : 04/06/21 17:10 04/06/21 17:10 A&P Assessment and plan (1) Atrial fibrillation with RVR: Status: Acute (2) Lightheadedness: Status: Acute Plan A. fib with RVR -Currently atrial fibrillation her rates in the 90s -On Cardizem at 10 -Wean down Cardizem drip, start p.o. Cardizem 60 every 6 -On Coumadin INR 2.34 -TSH within normal notes -magnesium, phosphorus pending -Cardiac echocardiogram pending -CT of the head pending -Does not look fluid overloaded, creatinine 1.5, hold off on Lasix History of DVT, continue Coumadin COPD, emphysema, not in exacerbation Hypertension, hold blood pressure medications [place], creatinine 1.5, continue to monitor Attestations Medical Necessity Statement*: Patient requires hospitalization for A. fib with RVR, and inpatient, greater than 2 midnights Coding Level of Care Code Acute Cigar Head Stringer for Chg Fwd Diagnoses Atrial fibrillation with RVR I48.91 Lightheadedness R42
[2021-04-06 20:52] VITALS: BP 110/66; PULSE 84; RESP 21; O2SAT 90
[2021-04-06 20:58] LABS: Magnesium 2.2 mg/dL (1.7-2.3); NT Pro B Type Natriuretic Pept 4294 pg/mL (0-450); Phosphorus 3.2 mg/dL (2.5-4.5)
[2021-04-06 21:17] LABS: Troponin 5 2HR 26.59 ng/L (0-10); Troponin 5 2HR Delta 3.59 ABS# (0-10)
--- NOTE | 2021-04-06 23:59 | CTR_ITS ---
PROCEDURE INFORMATION: Exam: CT Head Without Contrast Exam date and time: 04/06/2021 11:59 PM Age: 85 years old Clinical indication: Prior surgery; Surgery type: Aneurysm x 2. Tmj. ; Patient HX: C/O dizziness with nausea. ; Additional info: Lightheaded TECHNIQUE: Imaging protocol: Computed tomography of the head without contrast. Radiation optimization: All CT scans at this facility use at least one of these dose optimization techniques: automated exposure control; mA and/or kV adjustment per patient size (includes targeted exams where dose is matched to clinical indication); or iterative reconstruction. COMPARISON: No relevant prior studies available. RADIATION DOSE METRICS: Total DLP (mGy-cm): 624.53 FINDINGS: Brain: Mild to moderate cerebral atrophy and ischemic leukoencephalopathy. Cerebral ventricles: No ventriculomegaly. Paranasal sinuses: Mild left ethmoid sinus disease. Mastoid air cells: Visualized mastoid air cells are well aerated. Vasculature: Left craniectomy with left aneurysm clip. Right craniectomy with right aneurysm clip. Bones/joints: Left TMJ arthroplasty. Soft tissues: Unremarkable. CT/CT head wo con* [id number] IMPRESSION: 1. Left TMJ arthroplasty. 2. Left craniectomy with left aneurysm clip. 3. Right craniectomy with right aneurysm clip. 4. Mild left ethmoid sinus disease. 5. No acute intracranial findings.
[2021-04-07 01:05] VITALS: BP 118/57; PULSE 66; RESP 18; O2SAT 94
[2021-04-07] MEDS: ondansetron 2 mg/ML SDV 2 mL 4 MG IVP (01:12)
[2021-04-07 01:16] LABS: Chol HDL Ratio 7.16 mg/dL (0.0-4.40); Cholesterol 408 mg/dL (0-200); HDL Cholesterol 57 mg/dL (60-100); LDL Cholesterol Calculated 304 mg/dL (50-129); LDL HDL Ratio 5.33 RATIO (0.00-3.22); Triglycerides 234 mg/dL (0-150)
[2021-04-07 04:12] VITALS: O2SAT 93
[2021-04-07 04:49] VITALS: BP 133/61; PULSE 89; RESP 24; O2SAT 98
[2021-04-07] MEDS: dilTIAZem 60 mg Tablet PO (06:15)
[2021-04-07 06:36] LABS: Basophils # 0.1 10^3/uL (0.0-0.1); Basophils % 0.9 %; Eosinophils # 0.1 10^3/uL (0.0-0.8); Eosinophils % 0.6 %; Hematocrit 42.6 % (37.0-47.0); Hemoglobin 13.6 g/dL (11.5-15.3); Lymphocytes % 12.6 %; Mean Corpuscular HGB Conc 31.9 g/dL (30.0-36.0); Mean Corpuscular Hemoglobin 30.4 pg (28.0-34.0); Mean Corpuscular Volume 95.1 fl (81-99); Mean Platelet Volume 11.4 fL (7.4-10.4); Monocytes # 0.8 10^3/uL (0.2-0.9); Monocytes % 9.6 %; Neutrophils # 5.92 10^3/uL (1.8-7.7); Neutrophils % 75.9 %; Nucleated Red Blood Cells % 0 %; Platelet Count 194 10^3/cmm (130-400); Red Blood Count 4.48 10^6/uL (4.1-5.3); Red Cell Distribution Width 13.9 % (12.1-15.1); White Blood Count 7.8 10^3/uL (4.0-10.0)
[2021-04-07 07:02] LABS: Alanine Aminotransferase 7 U/L (0-33); Albumin Level 3.6 g/dL (3.5-5.2); Alkaline Phosphatase 55 IU/L (35-105); Anion Gap 18.8 (5-19); Aspartate Amino Transferase 20 U/L (0-32); Blood Urea Nitrogen 50 mg/dL (8-23); Calcium 9.4 mg/dL (8.5-10.5); Carbon Dioxide 19 mmol/L (22-29); Chloride 102 mmol/L (98-107); Globulin 2.6 g/dL (1.3-4.6); Glucose 116 mg/dL (65-115); Osmolality Calculated 296 mOsm/kg (285-295); Potassium 3.8 mmol/L (3.5-5.1); Sodium 136 mmol/L (136-145); Total Bilirubin 0.3 mg/dL (0.15-1.2); Total Protein 6.2 g/dL (6.6-8.7)
[2021-04-07 07:10] VITALS: BP 124/45; PULSE 80; RESP 16; O2SAT 100
--- NOTE | 2021-04-07 07:25 | ECG_ITS ---
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 Measurements Intervals [place] Rate: 77 P: [place]: QRS: 89 QRSD: 85 T: -65 QT: 346 QTc: 392 Interpretive Statements ATRIAL FIBRILLATION LOW QRS VOLTAGE IN PRECORDIAL LEADS [QRS DEFLECTION < 1.0 mV IN CHEST LEADS] POSSIBLE RIGHT VENTRICULAR CONDUCTION DELAY [RSR (QR) IN V1/V2] SEPTAL MYOCARDIAL INFARCTION , OF INDETERMINATE AGE [40+ ms Q WAVE IN V1/V2] MODERATE T-WAVE ABNORMALITY, CONSIDER LATERAL ISCHEMIA MODERATE T-WAVE ABNORMALITY, CONSIDER INFERIOR ISCHEMIA Compared to ECG 04/06/2021 17:52:03 T-wave abnormality now present Possible ischemia now present Right-axis deviation no longer present Myocardial infarct finding still present Electronically Signed On 04-07-2021 19:26:43 STOCKROOM ATTENDANT by Claire Quintero M.D. [id number]
[2021-04-07] MEDS: metoprolol succinate ER (24 HR) 25 mg Tablet PO (08:16)
--- NOTE | 2021-04-07 08:24 | P.DS_ITS ---
Discharge Providers Date of Admission: 04/06/21 18:41 Date of Discharge: April 07, 2021 Attending Provider at Admission: Jenaro Allison Attending Provider at Discharge: Tyrel Michele Primary Care Provider: NAGI Venegas Diagnoses at Discharge Discharge Diagnosis (1) Atrial fibrillation with RVR: Status: Acute (2) Lightheadedness: Status: Resolved (3) Hyperlipidemia: Status: Acute Reason for Visit Reason for Visit: AFIB Brief History: 85-year-old female presents emergency room with complaint of lightheadedness dizziness shortness of breath and rapid heart rate she had for several days progressively worsening. Hospital Course Hospital Course Patient initially evaluated in the emergency room found to be in atrial fibrillation. Initiated on Cardizem bolus and drip which achieved good rate control she was converted to p.o. Cardizem. She did not go into sinus rhythm but rate is well controlled in the 70s and 80s. She was initially started on Cardizem 60 mg every 6 hours. She is also on triamterene hydrochlorothiazide. On the morning of discharge her triamterene hydrochlorothiazide was held and she was started on Toprol-XL 25 p.o. daily. She is feeling much better she not having breathing difficulty and she is not having any chest pain. She never did have any chest pain with any of the course of the illness. She is chronically on warfarin for DVT prophylaxis she had multiple DVTs in the past. Her INR is above 2 and therapeutic. Physical Exam Const: COMMON NORMALS: no acute distress HENMT: COMMON NORMALS: normocephalic and atraumatic HEAD & SCALP: normocephalic and atraumatic Resp: COMMON NORMALS: clear to auscultation bilaterally AUSCULTATION: clear to auscultation bilaterally Cardio: COMMON NORMALS: regular rate RATE: regular rate RHYTHM: abnormal rhythm irregularly irregular Extremity: COMMON NORMALS: no calf tenderness and no pedal edema Discharge Data Studies Completed and Pending Completed Studies During Hospitalization Category Date Time Status CT head wo con* [id number] Urgent Cat Scan 04/06/21 23:59 Completed XR chest 1V portable [id number] Stat Exams 04/06/21 17:08 Completed Pending at discharge Category Date Time Status Hemoglobin A1C Routine Lab 04/06/21 17:10 Received CV. echo complete* [id number] Routine Ultrasound 04/07/21 23:59 Taken Radiology Impressions Chest X-Ray 04/06/21 17:08 IMPRESSION: 1. No acute findings. 2. The bilateral lower lobe opacities identified on the CT prior study are not appreciated on this exam and should be followed with CT imaging. Head CT 04/06/21 23:59 IMPRESSION: 1. Left TMJ arthroplasty. 2. Left craniectomy with left aneurysm clip. 3. Right craniectomy with right aneurysm clip. 4. Mild left ethmoid sinus disease. 5. No acute intracranial findings. Laboratory Results WBC 7.8 10^3/uL (4.0-10.0) 04/07/21 04:16 RBC 4.48 10^6/uL (4.1-5.3) 04/07/21 04:16 Hgb 13.6 g/dL (11.5-15.3) 04/07/21 04:16 Hct 42.6 % (37.0-47.0) 04/07/21 04:16 MCV 95.1 fl (81-99) 04/07/21 04:16 MCH 30.4 pg (28.0-34.0) 04/07/21 04:16 MCHC 31.9 g/dL (30.0-36.0) 04/07/21 04:16 RDW 13.9 % (12.1-15.1) 04/07/21 04:16 Plt Count 194 10^3/cmm (130-400) 04/07/21 04:16 MPV 11.4 fL (7.4-10.4) H 04/07/21 04:16 Neut % (Auto) 75.9 % 04/07/21 04:16 Lymph % (Auto) 12.6 % 04/07/21 04:16 [place] % (Auto) 9.6 % 04/07/21 04:16 Eos % (Auto) 0.6 % 04/07/21 04:16 Baso % (Auto) 0.9 % 04/07/21 04:16 Neut # (Auto) 5.92 10^3/uL (1.8-7.7) 04/07/21 04:16 Lymph # (Auto) 1.0 10^3/uL (0.8-4.8) 04/07/21 04:16 [place] # (Auto) 0.8 10^3/uL (0.2-0.9) 04/07/21 04:16 Eos # (Auto) 0.1 10^3/uL (0.0-0.8) 04/07/21 04:16 Baso # (Auto) 0.1 10^3/uL (0.0-0.1) 04/07/21 04:16 Nucleated RBC % (auto) 0 % 04/07/21 04:16 Nucleated RBCs # 0.0 /100WBC 04/07/21 04:16 PT 26.10 SECONDS (12.1-14.9) H 04/06/21 17:58 INR 2.34 (0.8-1.2) H 04/06/21 17:58 Sodium 136 mmol/L (136-145) 04/07/21 04:16 Potassium 3.8 mmol/L (3.5-5.1) 04/07/21 04:16 Chloride 102 mmol/L (98-107) 04/07/21 04:16 Carbon Dioxide 19 mmol/L (22-29) L 04/07/21 04:16 Anion Gap 18.8 (5-19) 04/07/21 04:16 BUN 50 mg/dL (8-23) H 04/07/21 04:16 Creatinine 1.5 mg/dL (0.5-0.9) H 04/07/21 04:16 GFR Calculation Not Reportable 04/07/21 04:16 Glucose 116 mg/dL (65-115) H 04/07/21 04:16 Calculated Osmolality 296 mOsm/kg (285-295) H 04/07/21 04:16 Calcium 9.4 mg/dL (8.5-10.5) 04/07/21 04:16 Phosphorus 3.2 mg/dL (2.5-4.5) 04/06/21 17:10 Magnesium 2.2 mg/dL (1.7-2.3) 04/06/21 17:10 Total Bilirubin 0.3 mg/dL (0.15-1.2) 04/07/21 04:16 AST 20 U/L (0-32) 04/07/21 04:16 ALT 7 U/L (0-33) 04/07/21 04:16 Alkaline Phosphatase 55 IU/L (35-105) 04/07/21 04:16 Creatine Kinase 67 U/L (26-192) 04/06/21 17:10 Troponin T Baseline 23 ng/L (0-10) H 04/06/21 17:10 Troponin T 120 Minute 26.59 ng/L (0-10) H 04/06/21 20:30 Delta Troponin T 3.59 ABS# (0-10) 04/06/21 20:30 NT-Pro-B Natriuret Pep 4294 pg/mL (0-450) H 04/06/21 17:10 Total Protein 6.2 g/dL (6.6-8.7) L 04/07/21 04:16 Albumin 3.6 g/dL (3.5-5.2) 04/07/21 04:16 Globulin 2.6 g/dL (1.3-4.6) 04/07/21 04:16 Triglycerides 234 mg/dL (0-150) H 04/06/21 17:10 Cholesterol 408 mg/dL (0-200) H 04/06/21 17:10 LDL Cholesterol, Calc 304 mg/dL (50-129) H 04/06/21 17:10 HDL Cholesterol 57 mg/dL (60-100) L 04/06/21 17:10 LDL/HDL Ratio 5.33 RATIO (0.00-3.22) H 04/06/21 17:10 Cholesterol/HDL Ratio 7.16 mg/dL (0.0-4.40) H 04/06/21 17:10 TSH 3.40 uIU/mL (0.27-4.20) 04/06/21 17:10 Vitals Last Vital Signs Temp 98.4 F 04/06/21 16:58 Pulse 80 04/07/21 07:10 Resp 16 04/07/21 07:10 BP 124/45 04/07/21 07:10 Pulse Ox 100 04/07/21 07:10 Discharge Plan Discharge Patient Disposition: Home Condition: Stable Prescriptions: New Toprol XL 25 mg tablet extended release 24 hr 25 mg PO DAILY Qty: 30 0RF Crestor 5 mg tablet 5 mg PO DAILY Qty: 30 0RF Continued ipratropium-albuterol 0.5 mg-3 mg(2.5 mg base)/3 mL solution for nebulization 3 ml inhalation Q6H PRN (Reason: shortness of breath or wheezing) Qty: 360 3RF levalbuterol tartrate [Xopenex HFA] 45 mcg/actuation HFA aerosol inhaler See Rx Instructions .ROUTE .COMPLEX Qty: 15 3RF Dose Instruction: inhale TWO puffs into lungs EVERY 6 HOURS Rx Instructions: inhale TWO puffs into lungs EVERY 6 HOURS warfarin 2 mg tablet See Rx Instructions .ROUTE .COMPLEX Qty: 90 0RF Dose Instruction: Take 1 tablet by mouth once daily Rx Instructions: Take 1 tablet by mouth once daily levalbuterol tartrate [Xopenex HFA] 45 mcg/actuation HFA aerosol inhaler 2 inh inhalation Q6H Qty: 15 5RF Discontinued triamterene-hydrochlorothiazid 37.5-25 mg tablet See Rx Instructions .ROUTE .COMPLEX Qty: 90 0RF Dose Instruction: Take 1 tablet by mouth once daily Rx Instructions: Take 1 tablet by mouth once daily Discharge Orders: Discharge Order (Routine); Ordered 04/07/21 Ordered By: Tyrel Pereyra Referrals: Aundrea Jerry FNP [Primary Care Provider] - Claire Quintero MD [Physician] - 1 week (Continuation of anticoagulation and renew medication changes (started on Toprol for rate control for A. fib and crestor)) Discharge Diet: Usual diet Discharge Activity: Resume usual activity Patient Instructions: Opioid Safety Activity Restrictions/Additional Instructions: Follow-up with cardiology with one 1 week. Case management will call to make arrangements for follow-up appointment Discharge Attestations Time Spent in Discharge Care*: greater than 30 min Specific Discharge Activities: educating patient, discussing with shelter case manager/social workers/dc planners, documenting/other paperwork and evaluating patient/reviewing data Quality Metrics Clinical Quality Measures [ No reported AMI, CVA or VTE this stay] Coding Level of Care Code Acute Chg FW DC note Exam Detailed Diagnoses Atrial fibrillation with RVR I48.91 Lightheadedness R42 Hyperlipidemia E78.5
[2021-04-07 08:59] VITALS: BP 124/50; PULSE 90; RESP 16; O2SAT 92
[2021-04-07 09:02] VITALS: BP 124/50; PULSE 90; RESP 16; O2SAT 92
[2021-04-07 21:28] LABS: Estmated Average Glucose 128; Hemoglobin A1C 6.1 % (4.0-6.0)
--- NOTE | 2021-04-07 23:59 | USCV_ITS ---
Kacie Quispe Age: 85 Gender: F : 1935 Exam Date: 04/07/2021 06:47 Ordering Phys: Jenaro Allison MD Technologist: SKYE [place] [facility] [place]: [place]IB BP: 132 / 62 HR: 91 Rhythm: Atrial fibrillation Technical Quality: Adequate MEASUREMENTS (Male / Female) Normal Values 2D ECHO LV Diastolic Diameter PLAX 3.0 cm 4.2 - 5.9 / 3.9 - 5.3 cm LV Systolic Diameter PLAX 1.7 cm IVS Diastolic Thickness 0.9 cm 0.6 - 1.0 / 0.6 - 0.9 cm IVS Systolic Thickness 1.2 cm LVPW Diastolic Thickness 1.2 cm 0.6 - 1.0 / 0.6 - 0.9 cm LVPW Systolic Thickness 1.5 cm LVOT Diameter 2.0 cm LV Ejection Fraction 2D Teich 74.8 % LV Ejection Fraction MOD 2C 81.9 % LV Ejection Fraction 2C AL 79.9 % LA Diameter 2.3 cm LA Width 2.9 cm LA Height 5.2 cm RA Width 2.7 cm RA Height 4.8 cm Aorta at Sinotubular Diameter 2.7 cm M-MODE Aortic Annulus Diameter 2.2 cm LA Ao Ratio MM 1.1 MV E Point Septal Separation 0.5 cm DOPPLER AV Peak Velocity 131.0 cm/s LVOT Peak Velocity 77.0 cm/s AV Area Cont Eq vti 2.2 cm squared AV Area Cont Eq pk 1.8 cm squared MV Area PHT 5.9 cm squared MV E' Velocity 47.0 cm/s Mitral E to MV E' Ratio 5.8 Mitral E to LV E' Lateral Ratio 6.2 Mitral E to LV E' Septal Ratio 5.5 TR Peak Velocity 310.3 cm/s TR Peak Gradient 38.5 mmHg TR Mean Velocity 232.0 cm/s TR Mean Gradient 24.5 mmHg TR Velocity Time Integral 78.3 cm TV Peak E Velocity 63.0 cm/s Right Atrial Pressure 3.0 mmHg Pulmonary Artery Systolic Pressu 41.5 mmHg PV Peak Velocity 79.0 cm/s RV Acceleration Time 0.1 s RV Ejection Time 0.3 s RV AcT/ET 0.4 FINDINGS Left Ventricle Normal left ventricular cavity size. Normal left ventricular systolic function. Left ventricular ejection fraction is estimated at 55 %. In the presence of atrial fibrillation diastolic function cannot be assessed accurately. Right Ventricle Normal right ventricular size. Moderate pulmonary hypertension, RVSP 41.5 mmHg. Right Atrium Moderately increased right atrial size. Left Atrium The left atrium is normal in size. Mitral Valve Moderately thickened mitral valve, moderate mitral annular calcification. No mitral valve stenosis. Mild mitral valve regurgitation. Aortic Valve Moderate aortic valve calcification. Mild aortic valve stenosis, mean gradient 3 mmHg, YEE 2.2 cm squared. Trace aortic valve regurgitation. Tricuspid Valve Moderate tricuspid valve regurgitation. Pulmonic Valve Structurally normal pulmonic valve without significant stenosis. There is no pulmonic regurgitation. Pericardium Normal pericardium without effusion. Aorta Normal ascending aorta dimension. CONCLUSIONS 1-Normal left ventricular cavity size. Normal left ventricular systolic function. Left ventricular ejection fraction is estimated at 55 %. In the presence of atrial fibrillation diastolic function cannot be assessed accurately. 2-Normal right ventricular size. Moderate pulmonary hypertension, RVSP 41.5 mmHg. 3-Moderately thickened mitral valve, moderate annulus calcification. No mitral valve stenosis. Mild mitral valve regurgitation. 4-Moderate aortic valve calcification. Mild aortic valve stenosis, mean gradient 3 mmHg, YEE 2.2 cm squared. Trace aortic valve regurgitation. 5-Moderate tricuspid valve regurgitation. 6-There is no pericardial effusion. 7-Right atrial pressure is around 5 mm of mercury. 8-When compared to the prior echocardiogram dated 19 September 2020 there is worsening of tricuspid valve regurgitation from mild to moderate. Fady Lara MD (Electronically Signed) Final Date: 07 April 2021 19:17 S
== END 2021-04-07 09:03 | disposition home or self-care (01) | DRG 309 ==
LOC: ER 18:03 → ER IP 20:33
PROVIDERS: Family Medicine; Admitting Provider Student in an Organized Health Care Education/Training Program; Emergency Provider Family Medicine; PCP Nurse Practitioner Family; Visit Provider Student in an Organized Health Care Education/Training Program
DX: I48.91 Unspecified atrial fibrillation (principal); N17.9 Acute kidney failure, unspecified; Z86.718 Personal history of other venous thrombosis and embolism; J43.9 Emphysema, unspecified; I10 Essential (primary) hypertension; Z87.891 Personal history of nicotine dependence; E78.5 Hyperlipidemia, unspecified; Z79.01 Long term (current) use of anticoagulants
CPT/HCPCS: 36415; 70450; 71045; 80053; 80061; 82550; 83036; 83735; 83880; 84100; 84443; 84484; 85025; 85610; 93005; 93306; 94664; J2405; J3490

== ENCOUNTER 2021-04-23 19:40 | Emergency (ER) | payer MEDICARE, OTHER, SELFPAY ==
[2021-04-23 19:46] VITALS: BP 148/80; PULSE 78; RESP 16; TEMP 36.4; O2SAT 94; BMI 17.9
--- NOTE | 2021-04-23 19:53 | XRR_ITS ---
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 Views: 1 view. COMPARISON: CR XR chest 1V portable [id number] 04/06/2021 5:20 PM FINDINGS: Lungs: The lungs are hyperinflated, consistent with COPD. Mild atelectasis versus infiltrates at the lung bases, right worse than left. The upper lungs are clear. Pleural spaces: Small bilateral pleural effusions are noted, right larger than left. Heart/Mediastinum: No cardiomegaly noted. Vasculature: The thoracic aorta is mildly atherosclerotic. Bones/joints: Unremarkable. XR/XR chest 1V portable [id number] IMPRESSION: 1. The lungs are hyperinflated, consistent with COPD. 2. Small bilateral pleural effusions are noted, right larger than left. This is new when compared to 04/06/2021. 3. Mild atelectasis versus infiltrates at the lung bases, right worse than left. This is new when compared to 04/06/2021.
--- NOTE | 2021-04-23 22:21 | ECG_ITS ---
[facility] Test Date: 2021-04-23 Pat Name: Kacie Quispe Department: Room: Gender: Female Cat Operator: : 1935 Requested By: Claudio Aaron Order Number: [id number] Erwin MD: Rory Frederick M.D. Measurements Intervals [place] Rate: 70 P: 96 RI: 163 QRS: 118 QRSD: 96 T: 82 QT: 417 QTc: 452 Interpretive Statements SINUS RHYTHM WITH OCCASIONAL SUPRAVENTRICULAR PREMATURE COMPLEXES LOW QRS VOLTAGE IN PRECORDIAL LEADS [QRS DEFLECTION < 1.0 mV IN CHEST LEADS] SEPTAL MYOCARDIAL INFARCTION , OF INDETERMINATE AGE [40+ ms Q WAVE IN V1/V2] LATERAL MYOCARDIAL INFARCTION , OF INDETERMINATE AGE [40+ ms Q WAVE AND/OR ST/T ABNORMALITY IN I/aVL/V5/V6] INTERPRETATION BASED ON A DEFAULT AGE OF 40 YEARS Compared to ECG 04/07/2021 08:20:00 Atrial fibrillation no longer present T-wave abnormality no longer present Possible ischemia no longer present Myocardial infarct finding still present Electronically Signed On 04-24-2021 6:59:25 CONE TENDER by Rory Frederick M.D. [id number]
[2021-04-23 22:28] LABS: Basophils # 0.1 10^3/uL (0.0-0.1); Basophils % 0.8 %; Eosinophils # 0.3 10^3/uL (0.0-0.8); Eosinophils % 3.5 %; Lymphocytes # 0.8 10^3/uL (0.8-4.8); Lymphocytes % 11.6 %; Mean Corpuscular HGB Conc 30.2 g/dL (30.0-36.0); Mean Corpuscular Hemoglobin 30.1 pg (28.0-34.0); Mean Corpuscular Volume 99.5 fl (81-99); Mean Platelet Volume 11.6 fL (7.4-10.4); Monocytes # 0.7 10^3/uL (0.2-0.9); Monocytes % 10.2 %; Neutrophils # 5.19 10^3/uL (1.8-7.7); Neutrophils % 73.5 %; Nucleated Red Blood Cells % 0 %; Platelet Count 169 10^3/cmm (130-400); Red Blood Count 4.32 10^6/uL (4.1-5.3); Red Cell Distribution Width 15.4 % (12.1-15.1); White Blood Count 7.1 10^3/uL (4.0-10.0)
[2021-04-23 22:33] LABS: INR 2.96 (0.8-1.2)
[2021-04-23 22:50] LABS: Alanine Aminotransferase 22 U/L (0-33); Albumin Level 3.9 g/dL (3.5-5.2); Alkaline Phosphatase 67 IU/L (35-105); Anion Gap 16.2 (5-19); Aspartate Amino Transferase 25 U/L (0-32); Blood Urea Nitrogen 23 mg/dL (8-23); Calcium 9.8 mg/dL (8.5-10.5); Carbon Dioxide 23 mmol/L (22-29); Chloride 108 mmol/L (98-107); Globulin 2.5 g/dL (1.3-4.6); Glucose 112 mg/dL (65-115); NT Pro B Type Natriuretic Pept 6597 pg/mL (0-450); Osmolality Calculated 300 mOsm/kg (285-295); Potassium 4.2 mmol/L (3.5-5.1); Sodium 143 mmol/L (136-145); Total Bilirubin 0.5 mg/dL (0.15-1.2); Total Protein 6.4 g/dL (6.6-8.7)
[2021-04-23] MEDS: FUROsemide 10 mg/mL SDV 4mL 40 MG IVP (23:04)
--- NOTE | 2021-04-24 02:17 | W.ED.SOB ---
HPI - SOB/Dyspnea General: Chief Complaint: Shortness of Breath/Dyspnea Stated Complaint: SOB Time Seen by Provider: 04/23/21 21:49 History of Present Illness: HPI Narrative: 85-year-old female with worsening shortness of breath and intolerance to exertion over the past several days. She has not had a significant increase in cough. She usually only wears oxygen at night, but has been using her oxygen at all times for the past 3 days or so. Shortness of breath persists despite this, and the use of her inhalers at home. She denies any fever. Minimal sputum production. She does note she has been wheezing. No swelling. No chest pain Pertinent past history: COPD Onset (ago): day(s) Context: recent illness and occurred during exertion Timing: constant and progressively worsening Severity: moderate Exacerbating factors: lying flat, exertion and recent new medication Relieving factors: oxygen and bronchodilators Known history of: COPD and other (Atrial fibrillation) Associated symptoms: Reports cough and dizziness; Deny abdominal pain, chest congestion, chest pain, fever(s) or palpitations Treatment prior to arrival: oxygen and bronchodilator Review of Systems Const: Denies: fever(s) ENMT: Denies: throat pain Card: Denies: chest pain or palpitations Resp: Denies: chest congestion GI: Denies: abdominal pain Neuro: Reports: dizziness [facility] ED PFSH: Medical History (Updated 04/23/21 @ 23:44 by Claudio Gallagher DO) Brain aneurysm History of COPD History of DVT (deep vein thrombosis) History of emphysema History of hypertension Hyperlipidemia Surgical History 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 Family History Other CAD (coronary artery disease) Social History Smoking and tobacco status: former smoker Quit status (tobacco): has quit using tobacco Year quit tobacco: 1993 - 0.5 PPD x 30 Years Second hand smoke exposure: Yes Smoking risk assessment/counseling performed?: No Alcohol intake: never Desire information about alcohol rehabilitation?: No Counseling given: No Desire information about substance/drug rehabilitation?: No Counseling given: No Lives independently: Yes Household members: friend(s) Housing: House Marital status: / service: No Current occupational status: retired 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 [employer] Pets and animals: Yes History of recent travel: No Current gender identity: Female Special alyx needs: No Physical Exam Const: COMMON NORMALS: no acute distress GENERAL APPEARANCE: cooperative, comfortable and frail appearing (mildly); not ill appearing HENMT: COMMON NORMALS: normocephalic and Normal external nose present HEAD & SCALP: normocephalic NOSE: Normal external nose present and Normal nares present Eye: COMMON NORMALS: Equal, round and reactive pupils present PUPIL: Yes Equal, round and reactive pupils present Neck/C-Spine: GENERAL: Yes normal visual inspection Chest: COMMONS NORMALS: normal inspection of the chest Resp: COMMON NORMALS: normal respiratory effort, No use of accessory muscles and clear to auscultation bilaterally AUSCULTATION: clear to auscultation bilaterally Cardio: COMMON NORMALS: regular rate, regular rhythm and Peripheral pulses 2+ throughout RATE: regular rate RHYTHM: regular rhythm PERIPHERAL PULSES: Peripheral pulses 2+ throughout GI: COMMON NORMALS: Normal to inspection, nondistended, normoactive bowel sounds present and Soft to palpation PALPATION: Yes Soft to palpation Extremity: GENERAL: No edema Neuro: JADEN COMA SCALE: document GCS findings [place] coma scale eye opening: Spontaneous [place] coma scale verbal response: Orientated [place] coma scale motor response: Obey commands Jaden coma scale total score: 15 Course Vital Signs: Vital signs: Vital Signs Temperature 97.5 F L 04/23/21 19:46 Pulse Rate 78 04/23/21 19:46 Respiratory Rate 16 04/23/21 19:46 Blood Pressure 148/80 04/23/21 19:46 Pulse Oximetry 94 04/23/21 19:46 MDM - SOB/Dyspnea Medical Decision Making Pulse ox is 98 200% on oxygen here. She is not swollen. She does not sound overly wet, although her chest x-ray shows bilateral pleural effusions that are significant, and likely the cause of her shortness of breath. Her BNP is 6500 with creatinine of 1. She has been in and out of atrial fibrillation which could lead to some functional heart failure. She was also recently taken off of the diuretic based hypertensive medication in favor of Toprol to control her rate. She has been given Lasix here with a good start on diuresis. She will be placed on Lasix for the next 5 days to continue. She wishes to go home. Lab Data : 04/23/21 21:59 04/23/21 21:59 Labs/Radiology: Radiology Impressions Chest X-Ray 04/23/21 19:53 IMPRESSION: 1. The lungs are hyperinflated, consistent with COPD. 2. Small bilateral pleural effusions are noted, right larger than left. This is new when compared to 04/06/2021. 3. Mild atelectasis versus infiltrates at the lung bases, right worse than left. This is new when compared to 04/06/2021. Laboratory Results WBC 7.1 10^3/uL (4.0-10.0) 04/23/21 21:59 RBC 4.32 10^6/uL (4.1-5.3) 04/23/21 21:59 Hgb 13.0 g/dL (11.5-15.3) 04/23/21 21:59 Hct 43.0 % (37.0-47.0) 04/23/21 21:59 MCV 99.5 fl (81-99) H 04/23/21 21:59 MCH 30.1 pg (28.0-34.0) 04/23/21: MCHC 30.2 g/dL (30.0-36.0) 04/23/21 21: RDW 15.4 % (12.1-15.1) H 04/23/21 21:59 Plt Count 169 10^3/cmm (130-400) 04/23/21 21:59 MPV 11.6 fL (7.4-10.4) H 04/23/21 21:59 Neut % (Auto) 73.5 % 04/23/21 21:59 Lymph % (Auto) 11.6 % 04/23/21: [place] % (Auto) 10.2 % 04/23/21: Eos % (Auto) 3.5 % 04/23/21 21:59 Baso % (Auto) 0.8 % 04/23/21 21:59 Neut # (Auto) 5.19 10^3/uL (1.8-7.7) 04/23/21 21:59 Lymph # (Auto) 0.8 10^3/uL (0.8-4.8) 04/23/21 21:59 [place] # (Auto) 0.7 10^3/uL (0.2-0.9) 04/23/21 21:59 Eos # (Auto) 0.3 10^3/uL (0.0-0.8) 04/23/21 21:59 Baso # (Auto) 0.1 10^3/uL (0.0-0.1) 04/23/21 21:59 Nucleated RBC % (auto) 0 % 04/23/21 21:59 Nucleated RBCs # 0.0 /100WBC 04/23/21 21:59 PT 31.30 SECONDS (12.1-14.9) H 04/23/21 21:59 INR 2.96 (0.8-1.2) H 04/23/21 21:59 Sodium 143 mmol/L (136-145) 04/23/21 21:59 Potassium 4.2 mmol/L (3.5-5.1) 04/23/21:59 Chloride 108 mmol/L (98-107) H 04/23/21 21:59 Carbon Dioxide 23 mmol/L (22-29) 04/23/21 21:59 Anion Gap 16.2 (5-19) 04/23/21 21:59 BUN 23 mg/dL (8-23) 04/23/21 21:59 Creatinine 1.0 mg/dL (0.5-0.9) H 04/23/21 21:59 GFR Calculation Not Reportable 04/23/21 21:59 Glucose 112 mg/dL (65-115) 04/23/21 21:59 Calculated Osmolality 300 mOsm/kg (285-295) H 04/23/21 21:59 Calcium 9.8 mg/dL (8.5-10.5) 04/23/21 21:59 Total Bilirubin 0.5 mg/dL (0.15-1.2) 04/23/21 21:59 AST 25 U/L (0-32) 04/23/21 21:59 ALT 22 U/L (0-33) 04/23/21 21:59 Alkaline Phosphatase 67 IU/L (35-105) 04/23/21 21:59 NT-Pro-B Natriuret Pep 6597 pg/mL (0-450) H 04/23/21 21:59 Total Protein 6.4 g/dL (6.6-8.7) L 04/23/21 21:59 Albumin 3.9 g/dL (3.5-5.2) 04/23/21 21:59 Globulin 2.5 g/dL (1.3-4.6) 04/23/21 21:59 Discharge Plan Discharge Patient Disposition: Home Clinical Impression: Pulmonary edema, COPD (chronic obstructive pulmonary disease) Condition: Stable Prescriptions: New Lasix 40 mg tablet 40 mg PO DAILY Qty: 5 0RF potassium chloride 20 mEq tablet,ER particles/crystals 20 meq PO DAILY Qty: 5 0RF Medrol (Isaac) 4 mg tablets,dose pack See Rx Instructions .ROUTE .COMPLEX Qty: 21 0RF Rx Instructions: orally per package directions No Action ipratropium-albuterol 0.5 mg-3 mg(2.5 mg base)/3 mL solution for nebulization 3 ml inhalation Q6H PRN (Reason: shortness of breath or wheezing) Qty: 360 3RF levalbuterol tartrate [Xopenex HFA] 45 mcg/actuation HFA aerosol inhaler See Rx Instructions .ROUTE .COMPLEX Qty: 15 3RF Dose Instruction: inhale TWO puffs into lungs EVERY 6 HOURS Rx Instructions: inhale TWO puffs into lungs EVERY 6 HOURS warfarin 2 mg tablet See Rx Instructions .ROUTE .COMPLEX Qty: 90 0RF Dose Instruction: Take 1 tablet by mouth once daily Rx Instructions: Take 1 tablet by mouth once daily levalbuterol tartrate [Xopenex HFA] 45 mcg/actuation HFA aerosol inhaler 2 inh inhalation Q6H Qty: 15 5RF Toprol XL 25 mg tablet extended release 24 hr 25 mg PO DAILY Qty: 30 0RF Crestor 5 mg tablet 5 mg PO DAILY Qty: 30 0RF Discharge Orders: Discharge ED (Routine); Ordered 04/23/21 Ordered By: Claudio Gallagher Referrals: Aundrea Jerry FNP [Primary Care Provider] - 1-3 days Discharge Diet: Advance as tolerated Discharge Activity: Increase activity as tolerated Patient Instructions: Pulmonary Edema (ED), COPD (Chronic Obstructive Pulmonary Disease) (ED) Activity Restrictions/Additional Instructions: Return for worsening shortness of breath despite treatment, chest discomfort, fever greater than 100, any other concerning symptoms Coding Level of Care Code ED [employer] for Etta Martinez
== END 2021-04-24 00:17 | disposition home or self-care (01) ==
PROVIDERS: Emergency Provider Emergency Medicine; PCP Nurse Practitioner Family
DX: J44.9 Chronic obstructive pulmonary disease, unspecified (principal); J81.1 Chronic pulmonary edema; Z79.01 Long term (current) use of anticoagulants; I10 Essential (primary) hypertension; E78.5 Hyperlipidemia, unspecified; Z87.891 Personal history of nicotine dependence
CPT/HCPCS: 71045; 80053; 83880; 85025; 85610; 93005; 96374; 99283; J1940

== ENCOUNTER → 2021-04-27 11:28 | Outpatient (BNVA) | payer MEDICARE, OTHER, SELFPAY | PROVIDERS: PCP Nurse Practitioner Family; Visit Provider Internal Medicine Cardiovascular Disease | DX: I48.91 Unspecified atrial fibrillation (principal); J44.9 Chronic obstructive pulmonary disease, unspecified; I07.1 Rheumatic tricuspid insufficiency; I50.9 Heart failure, unspecified; Z87.891 Personal history of nicotine dependence | CPT/HCPCS: 99204; 99213 ==

== ENCOUNTER → 2021-05-03 13:48 | Outpatient (BNVA) | payer MEDICARE, OTHER, SELFPAY | PROVIDERS: PCP Nurse Practitioner Family; Visit Provider Internal Medicine Cardiovascular Disease | DX: I48.91 Unspecified atrial fibrillation (principal); I10 Essential (primary) hypertension | CPT/HCPCS: 80048; 83735; 83880 ==

== ENCOUNTER → 2021-06-28 12:54 | Outpatient (BNVA) | payer MEDICARE, OTHER, SELFPAY | PROVIDERS: PCP Nurse Practitioner Family; Visit Provider Internal Medicine Cardiovascular Disease | DX: I48.20 Chronic atrial fibrillation, unspecified (principal); I11.0 Hypertensive heart disease with heart failure; I50.9 Heart failure, unspecified; E78.5 Hyperlipidemia, unspecified; Z79.01 Long term (current) use of anticoagulants; I82.509 Chronic embolism and thrombosis of unspecified deep veins of unspecified lower extremity; J43.2 Centrilobular emphysema; Z87.891 Personal history of nicotine dependence | CPT/HCPCS: 99213; 99214 ==

== ENCOUNTER 2021-09-06 16:07 | Outpatient (CLI) | payer MEDICARE, OTHER, SELFPAY ==
--- NOTE | 2021-09-06 16:00 | CT_ITS ---
WS: [id number] CT CHEST WITHOUT INTRAVENOUS CONTRAST HISTORY: Emphysema and lung cancer. Follow-up. TECHNIQUE: Contiguous 5 mm axial imaging performed on the thorax. Coronal and sagittal reformats are submitted. All CT scans at [facility] use at least one of these dose optimization techniques: automated exposure control; mA and/or kV adjustment per patient size (includes targeted exams where dose is matched to clinical indication); or iterative reconstruction. CONTRAST: None DLP: 436.33 mGy.cm COMPARISON: 03/15/2021 and 09/18/2020, 01/16/2019 Lungs and central airway: Marked chronic emphysema. Lungs are hyperexpanded. Pleural-based nodule sup erior posterior segment RIGHT lower lobe measures 2.7 x 1.3 cm. This nodule appears more solid and sp iculated as compared to the most recent examinations. Previously described nodule with groundglass at tenuation in the LEFT lower lobe is again identified. Nodule contains less groundglass attenuation an d is now more curvilinear and slightly more spiculated. Best seen on the coronal reformats. Nodule me asures 11 x 7 mm without increase in size. No change in the 4 mm nodule at the RIGHT lung base. Pleura: No effusion. Heart and pericardium: Moderate cardiomegaly. Mediastinum and vandana: Continued soft tissue thickening with calcification along the RIGHT fissure and proximal bronchovascular structures. No improvement. Very similar to the most recent examination. Th ere is mild peribronchial thickening and slight spiculation. Vessels: Moderate atherosclerosis aorta. No aneurysm. Pulmonary artery is dilated. Moderate coronary artery calcifications. Chest wall and lower neck: No soft tissue masses. Upper abdomen: Extensive suprarenal aortic calcifications. No adrenal mass. No liver lesions identifi ed on this unenhanced exam. Pancreatic atrophy. Previously described cystic mass measures 10 mm near the uncinate process. This is incompletely included on this examination. Osseous structures: No destructive process. CT/CT chest wo con [id number] IMPRESSION: 1. LEFT lower lobe FDG avid nodule has slightly changed in size. There is less groundglass attenuation but the spiculated component is similar measuring 11 x 7 mm. Recommend continue close CT imaging follow-up. 2. Slight increase in size of the pleural-based mass RIGHT lower lobe measurin g 2.7 x 1.3 cm. This may be due to adjacent atelectasis or fibrosis. This can a lso be followed up on subsequent exams. 3. No change in the central RIGHT bronchovascular soft tissue thickening. 4. No new or increasing mediastinal or hilar adenopathy. 5. Cardiomegaly. 6. Atherosclerosis aorta and pulmonary hypertension.
== END 2021-09-06 16:08 | disposition home or self-care (01) ==
LOC: RAD 16:08
PROVIDERS: PCP Nurse Practitioner Family; Visit Provider Internal Medicine Pulmonary Disease
DX: J98.4 Other disorders of lung (principal); R91.8 Other nonspecific abnormal finding of lung field; I51.7 Cardiomegaly; I25.10 Atherosclerotic heart disease of native coronary artery without angina pectoris; I27.20 Pulmonary hypertension, unspecified
CPT/HCPCS: 71250

== ENCOUNTER → 2021-09-28 15:38 | Outpatient (BNVA) | payer MEDICARE, OTHER, SELFPAY | PROVIDERS: PCP Nurse Practitioner Family; Visit Provider Internal Medicine Pulmonary Disease | DX: R06.02 Shortness of breath (principal); J43.2 Centrilobular emphysema; I82.509 Chronic embolism and thrombosis of unspecified deep veins of unspecified lower extremity; Z79.01 Long term (current) use of anticoagulants; R07.81 Pleurodynia; Z86.16 Personal history of COVID-19; Z77.22 Contact with and (suspected) exposure to environmental tobacco smoke (acute) (chronic); Z87.891 Personal history of nicotine dependence; Z99.81 Dependence on supplemental oxygen | CPT/HCPCS: 99214 ==

== ENCOUNTER → 2022-02-15 13:27 | Outpatient (BNVA) | payer MEDICARE, OTHER, SELFPAY | PROVIDERS: PCP Nurse Practitioner Family; Visit Provider Internal Medicine Pulmonary Disease | DX: I11.0 Hypertensive heart disease with heart failure (principal); I50.9 Heart failure, unspecified; E78.5 Hyperlipidemia, unspecified; I48.91 Unspecified atrial fibrillation; I07.1 Rheumatic tricuspid insufficiency; Z87.891 Personal history of nicotine dependence; R91.1 Solitary pulmonary nodule; R06.02 Shortness of breath; J43.2 Centrilobular emphysema; I82.509 Chronic embolism and thrombosis of unspecified deep veins of unspecified lower extremity; Z79.01 Long term (current) use of anticoagulants; R07.81 Pleurodynia | CPT/HCPCS: 36415; 80053; 80061; 83735; 83880; 85025; 85610; 99214 ==

== ENCOUNTER → 2022-06-17 10:10 | Outpatient (BNVA) | payer MEDICARE, OTHER, SELFPAY | PROVIDERS: PCP Nurse Practitioner Family; Visit Provider Nurse Practitioner Family | DX: I48.91 Unspecified atrial fibrillation (principal) | CPT/HCPCS: 80053; 84443; 85025; 85610 ==

== ENCOUNTER → 2022-07-19 13:55 | Outpatient (BNVA) | payer MEDICARE, OTHER, SELFPAY | PROVIDERS: PCP Nurse Practitioner Family; Visit Provider Internal Medicine | DX: I48.91 Unspecified atrial fibrillation (principal); Z79.01 Long term (current) use of anticoagulants; I11.0 Hypertensive heart disease with heart failure; I50.9 Heart failure, unspecified; E78.5 Hyperlipidemia, unspecified; I07.1 Rheumatic tricuspid insufficiency; Z87.891 Personal history of nicotine dependence | CPT/HCPCS: 99214 ==

== ENCOUNTER 2022-09-05 10:43 | Outpatient (CLI) | payer MEDICARE, OTHER, SELFPAY ==
--- NOTE | 2022-09-05 11:00 | CT_ITS ---
WS: [id number] CT chest wo con [id number] HISTORY: f/u left lower lobe lung nodule TECHNIQUE: Axial imaging performed through the thorax. Coronal and sagittal reformats are submitted. All CT scans at [facility] use at least one of these dose optimization techniques: automated exposure control; mA and/or kV adjustment per patient size (includes targeted exams where dose is mat ched to clinical indication); or iterative reconstruction. CONTRAST: None DLP: 164.02 mGy.cm COMPARISON: 09/06/2021, 09/18/2020 Lungs and central airway: Chronic emphysema. Small RIGHT pleural effusion. Pleural-based soft tissue mass with mild spiculation has progressed since the most recent examination. Nodule measures approxim ately 1.7 x 1.6 cm. Additional 5 mm nodule at the RIGHT lung base is stable. Mildly spiculated nodule superior segment LEFT lower lobe measures 1.3 x 0.8 cm and is more prominent as compared to the prio r study. Pleura: Mild pleural thickening and small effusion on the RIGHT. Heart and pericardium: Moderate cardiomegaly. Mediastinum and vandana: Again noted is increased soft tissue with scattered calcifications at the RIGHT hilum and extending along the proximal RIGHT lower lobe bronchial tree. This is been previous the de scribed and appears minimally more prominent. Vessels: Moderate atherosclerosis aorta. Pulmonary artery is enlarged. Chest wall and lower neck: No soft tissue masses. Upper abdomen: Heavy calcification in the suprarenal aorta. No adrenal mass. Osseous structures: No destructive process. CT/CT chest wo con [id number] IMPRESSION: 1. Mild increased spiculated pleural-based nodule in the superior segment RIGH T lower lobe as compared to 09/06/2021. There is also adjacent pleural fluid. No dule now measures 1.7 x 1.6 cm. This should be evaluated for neoplasm. LEFT low er lobe nodule has also slightly increased in size and is slightly more spicula sofie as compared to the most recent study. Recommend follow-up chest CT in 3 mon ths. 2. No adenopathy. 3. Stable soft tissue thickening and calcifications at the RIGHT hilum extendi ng along the RIGHT lower lobe bronchial tree. 4. Chronic emphysema.
== END 2022-09-05 10:44 | disposition home or self-care (01) ==
PROVIDERS: PCP Nurse Practitioner Family; Visit Provider Internal Medicine Pulmonary Disease
DX: R91.1 Solitary pulmonary nodule (principal); J43.9 Emphysema, unspecified; J98.4 Other disorders of lung
CPT/HCPCS: 71250

== ENCOUNTER 2022-09-24 05:47 | Outpatient (CLI) | payer MEDICARE, OTHER, SELFPAY ==
--- NOTE | 2022-09-24 10:00 | PETR_ITS ---
PROCEDURE INFORMATION: Exam: PET/CT Skull Base to Mid-thigh Exam date and time: 09/24/2022 10:56 AM Age: 87 years old Clinical indication: Abnormal findings; Solitary pulmonary nodule; Additional info: Lung cancer screening LABS AND CLINICAL REPORTS: Glucose: 108 mg/dl Treatment strategy for malignancy (PET staging): Initial Staging (PI) TECHNIQUE: Imaging protocol: Following at least four-hour fasting and following the injection of radiopharmaceutical, low dose CT images were obtained. Then, PET images were obtained. Attenuation corrected images were constructed using the CT scan. Fused images of PET and CT were reviewed. The standardized uptake values (SUV) reported below are maximum values within a region of interest, expressed in gm/ml. Exam includes orbital meatal line to mid-thigh. Radiopharmaceutical: 11.65 mCi F-18 FDG (Fluorodeoxyglucose), IV. Time of imaging post radiopharmaceutical administration: 1 hour Injection site: Left antecubital COMPARISON: 1. PT PET Scan 01/31/2022 3:05 PM 2. PT PET Scan 09/26/2020 11:[address] chest con [id number] 09/05/2022 10:54 AM FINDINGS: Brain: Visualized brain has normal physiologic uptake. Pharynx: No abnormal uptake. Larynx: No abnormal uptake. Lungs, pleura and trachea: Upper lung predominant emphysema. Irregular subpleural 2.6 x 1.2 cm superior segment right lower lobe nodule stable in size from January 2022 shows SUV max of 2.5 and mildly increased consolidation. Right perihilar nodular thickening and calcifications measuring approximately 3.7 x 1.8 cm shows SUV max of 5.7, mildly increased in size from August 2020 but stable from January 2022. Left lower lobe 1.8 x 1.2 cm irregular nodule stable in size from January 2022 shows SUV max of 2.4. Few additional subcentimeter nodules at the right lower lobe. Heart: Normal physiologic uptake. Coronary arteries: Mild coronary artery calcification. Mediastinal space: No abnormal uptake. Liver: No abnormal uptake. Gallbladder and bile ducts: No abnormal uptake. Pancreas: No abnormal uptake. Spleen: No abnormal uptake. Adrenal glands: No abnormal uptake. Stable mild left adrenal thickening. Kidneys and ureters: Normal physiologic uptake. Stomach and bowel: No abnormal uptake. No bowel dilatation. Colonic diverticulosis without findings of diverticulitis. Vasculature: No abnormal uptake. Heavy aortoiliac atherosclerotic calcification without abdominal aortic aneurysm. Lymph nodes: Subcarinal lymph node measures 1.2 cm in the short axis and shows SUV max of 5.7. No lymphadenopathy in the head, neck, abdomen, pelvis, and extremities. Bones/joints: No abnormal uptake in the visualized axial and appendicular skeleton. Soft tissues: No abnormal uptake in the visualized head, neck, chest, abdomen, pelvis, and extremities. [facility] [id number] IMPRESSION: Mildly increased consolidation of irregular subpleural right lower lobe nodule. Otherwise stable exam from January 2022. Findings may be inflammatory or possibly neoplastic and continued imaging follow-up is warranted as clinically indicated.
== END 2022-09-24 05:48 | disposition home or self-care (01) ==
LOC: RAD 09-26 05:48
PROVIDERS: PCP Nurse Practitioner Family; Visit Provider Internal Medicine Pulmonary Disease
DX: R91.1 Solitary pulmonary nodule (principal)
CPT/HCPCS: 78815; A9552

== ENCOUNTER → 2022-10-04 11:02 | Outpatient (BNVA) | payer MEDICARE, OTHER, SELFPAY | PROVIDERS: PCP Nurse Practitioner Family; Visit Provider Internal Medicine Pulmonary Disease | DX: R91.1 Solitary pulmonary nodule (principal); J43.2 Centrilobular emphysema; Z79.01 Long term (current) use of anticoagulants; I48.91 Unspecified atrial fibrillation; Z87.891 Personal history of nicotine dependence; Z86.16 Personal history of COVID-19; Z99.81 Dependence on supplemental oxygen; Z86.718 Personal history of other venous thrombosis and embolism | CPT/HCPCS: 99214 ==

== ENCOUNTER 2023-02-14 13:48 | Outpatient (CLI) | payer MEDICARE, OTHER, SELFPAY ==
--- NOTE | 2023-02-14 12:00 | PETR_ITS ---
PROCEDURE INFORMATION: Exam: PET/CT Skull Base to Mid-thigh Exam date and time: 02/14/2023 12:49 PM Age: 87 years old Clinical indication: Abnormal findings; Solitary pulmonary nodule; Prior surgery; Surgery date: 6+ months; Surgery type: RT lung; Additional info: R91.1 - solitary pulmonary nodule LABS AND CLINICAL REPORTS: Glucose: 103 mg/dl Treatment strategy for malignancy (PET staging): Initial Staging (PI) TECHNIQUE: Imaging protocol: Following at least four-hour fasting and following the injection of radiopharmaceutical, low dose CT images were obtained. Then, PET images were obtained. Attenuation corrected images were constructed using the CT scan. Fused images of PET and CT were reviewed. The standardized uptake values (SUV) reported below are maximum values within a region of interest, expressed in gm/ml. Exam includes orbital meatal line to mid-thigh. Provided patient weight of 40 kg for SUV calculation is confirmed on the provided technologist worksheet. Radiopharmaceutical: 11.63 mCi F-18 FDG (Fluorodeoxyglucose), IV. Time of imaging post radiopharmaceutical administration: 1 hour Injection site: Left antecubital [id number] 09/24/2022 10:56 AM FINDINGS: Brain: Visualized brain has normal physiologic uptake. Bilateral aneurysm clips are noted in the supraclinoid regions. Oral cavity: Benign, likely physiologic uptake is noted in the anterior tongue without evidence of a discrete lesion. Pharynx: No abnormal uptake. Larynx: There is physiologic appearing uptake in the region of the vocal cords. Lungs, pleura and trachea: Partially calcified ovoid soft tissue density in the inferior right hilar region measuring approximately 4.0 x 2.3 cm on series 3, image 107 is similar in morphology and demonstrates an SUV max 5.3 (previously 5.7). [id number] bilateral centrilobular emphysematous changes are present. A spiculated nodule in the right lower lobe adjacent to the pleural surface measures 2.8 x 1.9 cm on series 3, image 83, SUV max 2.4 (previously 2.5). This nodule is similar in size allowing for differences in measurement technique between the current and prior exam. A solid spiculated nodule in the medial left lower lobe on CT image 87 measures 1.8 x 1.6 cm (previously 1.8 x 1.2 cm) SUV max 2.3 (previously 2.4). Small right pleural effusion. Heart: Normal physiologic uptake. Mediastinal space: No abnormal uptake. Liver: No abnormal uptake. Gallbladder and bile ducts: No abnormal uptake. Pancreas: No abnormal uptake. Spleen: No abnormal uptake. Adrenal glands: No abnormal uptake. Kidneys and ureters: Normal physiologic uptake. Stomach and bowel: No abnormal uptake. There are scattered colonic diverticula. Vasculature: No abnormal uptake. Diffuse atherosclerotic changes are noted. Lymph nodes: Abnormal uptake in the subcarinal space is noted in a similar in size lymph node measuring 2.1 x 1.5 cm on series 3, image 86, SUV max 4.9 (previously 5.7). Bones/joints: New abnormal uptake in the T1 vertebral body, SUV max 4.3 without a well-defined lesion on corresponding CT series 3, image 50. Postoperative changes of bilateral temporal bone craniotomy are noted.The bones appear demineralized.There is mild diffuse vertebral body spondylosis. Soft tissues: No abnormal uptake in the visualized head, neck, chest, abdomen, pelvis, and extremities. METRICS: Mediastinal blood pool: SUV max 3.0 [facility] [id number] IMPRESSION: 1. Soft tissue density compatible with mass or lymphadenopathy extending from the right perihilar region is similar in morphology with persistent abnormal uptake which is slightly decreased (SUV max 5.3, previously 5.7). Similar size of a mildly prominent subcarinal lymph node with interval decrease in abnormal uptake (SUV max 4.9, previously 5.7). Although the degree of uptake is decreased since the prior PET-CT, malignancy cannot be excluded. 2. A spiculated pleural based right lower lobe nodule is similar in size with similar to slightly decreased uptake (SUV max 2.4, previously 2.5). A solid nodule in the left lower lobe appears slightly increased in size with similar to slightly decreased uptake (SUV max 2.3, previously 2.4). This uptake may be infectious or inflammatory in nature although malignancy cannot be excluded. 3. Colonic diverticulosis. 4. Additional nonurgent findings as detailed above.
== END 2023-02-14 13:49 | disposition home or self-care (01) ==
LOC: RAD 13:48
PROVIDERS: PCP Nurse Practitioner Family; Visit Provider Internal Medicine Pulmonary Disease
DX: R91.1 Solitary pulmonary nodule (principal); R91.8 Other nonspecific abnormal finding of lung field
CPT/HCPCS: 78815; A9552

== ENCOUNTER → 2023-03-09 12:30 | Outpatient (BNVA) | payer MEDICARE, OTHER, SELFPAY | PROVIDERS: PCP Nurse Practitioner Family; Visit Provider Internal Medicine | DX: I48.91 Unspecified atrial fibrillation (principal); Z79.01 Long term (current) use of anticoagulants; I11.0 Hypertensive heart disease with heart failure; I50.9 Heart failure, unspecified; E78.5 Hyperlipidemia, unspecified; I07.1 Rheumatic tricuspid insufficiency; Z87.891 Personal history of nicotine dependence | CPT/HCPCS: 99214 ==

== ENCOUNTER 2023-03-15 15:25 | Emergency (ER) | payer MEDICARE, OTHER, SELFPAY ==
[2023-03-15] VITALS (17 sets, daily range): BP systolic 89–127; BP diastolic 53–88; PULSE 61–124; RESP 14–28; TEMP 37.1; O2SAT 86–100; BMI 16.0
--- NOTE | 2023-03-15 15:30 | XR_ITS ---
WS: [id number] Exam: XR chest 1V portable [id number] Date/Time of Exam: 03/15/2023 3:35 PM Reason For Exam: cough Comparison 04/23/2021. The lungs are hyperinflated and clear. Small RIGHT basal pleural effusion is noted. The heart is enla rged. The mediastinum is normal in contour. Bony elements are intact. A battery pack superimposes the superior mediastinum. IMPRESSION: 1. Pulmonary hyperinflation which may indicate COPD. 2. Small RIGHT basal pleural effusion. 3. Moderate cardiac enlargement unchanged.
--- NOTE | 2023-03-15 15:55 | ECG_ITS ---
[facility] Test Date: 2023-03-15 Pat Name: Kacie Quispe Department: Room: Gender: Female [employer]: : 1935 Requested By: Rosie Pimentel Order Number: [id number] Erwin MD: Micky Raygoza M.D. Measurements Intervals [place] Rate: 119 P: 0 VA: 0 QRS: 135 QRSD: 89 T: 56 QT: 316 QTc: 446 Interpretive Statements ATRIAL FIBRILLATION WITH RAPID VENTRICULAR RESPONSE POSSIBLE RIGHT VENTRICULAR HYPERTROPHY [SOME/ALL OF: PROMINENT R IN V1, LATE TRANSITION, RAD, AMAURY, SSS] SEPTAL MYOCARDIAL INFARCTION , OF INDETERMINATE AGE [40+ ms Q WAVE IN V1/V2] Compared to ECG 04/23/2021 22:56:04 Sinus rhythm no longer present Myocardial infarct finding still present Electronically Signed On 03-16-2023 11:05:46 [employer] by Micky Raygoza M.D. [id number]
--- NOTE | 2023-03-15 16:04 | ED_ITS ---
HPI - General Adult 2 General: Chief complaint: General Medical Stated complaint: coughing up blood Time Seen by Provider: 03/15/23 15:46 Source: patient Mode of arrival: ambulatory Limitations: no limitations History of Present Illness: 87-year-old female states that she has a history of COPD she is on oxygen at home at baseline states that today she coughed up a small amount of blood concerned her. She had some slight increase in dyspnea but denies any severe dyspnea she denies any chest pain denies any fevers. She had history of A-fib as well she is on blood thinner. Denies any vomiting or diarrhea Associated symptoms: Reports dyspnea; Deny chest pain, headache(s), nausea, rash or vomiting Review of Systems 2 Const: Denies: fever(s), chills, body aches or change in appetite ENMT: Denies: throat pain or dental pain Card: Denies: chest pain Resp: Reports: dyspnea and hemoptysis GI: Denies: abdominal pain, nausea, vomiting or diarrhea : Denies: dysuria Musc: Denies: neck pain or back pain Skin/Breast: Denies: rash Neuro: Denies: headache(s) PFSH ED 2 PFSH: Medical History CHF (congestive heart failure), NYHA class III Tricuspid valve regurgitation Hyperlipidemia Brain aneurysm History of hypertension History of DVT (deep vein thrombosis) History of emphysema History of COPD Surgical History S/P brain surgery S/P hysterectomy S/P breast biopsy History of lung biopsy 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 Family History Mother Rheumatic fever Father Pulmonary embolism Other CAD (coronary artery disease) Social History Smoking and tobacco/nicotine status: former use of tobacco/nicotine Quit status (tobacco/nicotine): has quit using Year quit tobacco: 1993 - 0.5 PPD x 30 Years Second hand smoke exposure: Yes Alcohol intake: never Substance/Drug Use: never Lives independently: Yes Household members: friend(s) Housing: House Marital status: / service: No Current occupational status: retired 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 [employer] Pets and animals: Yes Do you think of yourself as: Straight/Heterosexual Current gender identity: Female Special alyx needs: No Physical Exam 2 Const: COMMON NORMALS: no acute distress, patient oriented x3 and healthy appearing HENMT: COMMON NORMALS: normocephalic and atraumatic HEAD & SCALP: n ormocephalic and atraumatic Eye: COMMON NORMALS: Equal, round and reactive pupils present and EOMs intact bilaterally PUPIL: Yes Equal, round and reactive pupils present Neck/C-Spine: COMMON NORMALS: full ROM and supple Chest: COMMONS NORMALS: normal inspection of the chest and normal palpation of entire chest wall Resp: COMMON NORMALS: normal respiratory effort, No retractions, No use of accessory muscles and clear to auscultation bilaterally AUSCULTATION: clear to auscultation bilaterally Cardio: COMMON NORMALS: No murmurs present (Cardio) RATE: tachycardic R HYTHM: abnormal rhythm irregularly irregular GI: COMMON NORMALS: Normal to inspection, nondistended, normoactive bowel sounds present, Soft to palpation, non-tender and no masses PALPATION: Yes Soft to palpation Extremity: COMMON NORMALS: normal to inspection and full ROM Neuro: COMMON NORMALS: patient oriented x3, moves all extremities and no focal motor deficits Psych: COMMON NORMALS: mental status grossly normal, Normal thought process present and cooperative THOUGHT PROCESS: Normal thought process present Skin: COMMON NORMALS: no rashes or lesions noted and no wounds GENERAL SKIN EXAM: no rashes or lesions noted Course 2 Vital Signs: Vital signs: Vital Signs Temperature 98.7 F 03/15/23 15:38 Pulse Rate 71 03/15/23 17:40 Respiratory Rate 15 03/15/23 17:40 Blood Pressure 127/80 03/15/23 17:40 Pulse Oximetry 86 L 03/15/23 17:40 Oxygen Delivery Me thod Nasal Cannula 03/15/23 15:38 Oxygen Flow Rate 2 03/15/23 15:38 MDM - General Adult Medical Decision Making Patient presents here with hemoptysis she has had no shortness of breath she is well-appearing here she had no large amounts of hemoptysis x-ray is clear she has no signs of pulm embolism we will place her on a Z-Isaac of her follow-up with her 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 Medical Records I reviewed the patient's medical records. Lab Data I reviewed the patient's lab results. 03/15/23 16:04 03/15/23 16:04 Laboratory Results WBC 7.82 10^3/uL (3.29-11.43) 03/15/23 16:04 RBC 4.80 10^6/uL (3.85-5.65) 03/15/23 16:04 Hgb 15.10 g/dL (11.27-16.99) 03/15/23 16:04 Hct 49.0 % (36-47) H 03/15/23 16:04 MCV 102.1 fl (85-98) H 03/15/23 16:04 MCH 31.5 pg (27-33) 03/15/23 16:04 MCHC 30.8 g/dL (30-55) 03/15/23 16:04 RDW 14.2 % (12.1-15.1) 03/15/23 16:04 Plt Count 220 10^3/cmm (157-399) 03/15/23 16:04 MPV 11.3 fL (7.4-10.4) H 03/15/23 16:04 Neut % (Auto) 62.0 % 03/15/23 16:04 Lymph % (Auto) 21.7 % 03/15/23 16:04 [place] % (Auto) 13.2 % 03/15/23 16:04 Eos % (Auto) 1.4 % 03/15/23 16:04 Baso % (Auto) 0.9 % 03/15/23 16:04 Neut # (Auto) 4.85 10^3/uL (1.8-7.7) 03/15/23 16:04 Lymph # (Auto) 1.7 10^3/uL (0.8-4.8) 03/15/23 16:04 [place] # (Auto) 1.0 10^3/uL (0.2-0.9) H 03/15/23 16:04 Eos # (Auto) 0.1 10^3/uL (0.0-0.8) 03/15/23 16:04 Baso # (Auto) 0.1 10^3/uL (0.0-0.1) 03/15/23 16:04 Nucleated RBC % (auto) 0 % 03/15/23 16:04 Nucleated RBCs # 0.0 /100WBC 03/15/23 16:04 Sodium 140 mmol/L (136-145) 03/15/23 16:04 Potassium 4.1 mmol/L (3.5-5.1) 03/15/23 16:04 Chloride 99 mmol/L (98-107) 03/15/23 16:04 Carbon Dioxide 27 mmol/L (22-29) 03/15/23 16:04 Anion Gap 18.1 (5-19) 03/15/23 16:04 BUN 34 mg/dL (8-23) H 03/15/23 16:04 Creatinine 1.1 mg/dL (0.5-0.9) H 03/15/23 16:04 GFR Calculation Not Reportable 03/15/23 16:04 Glucose 130 mg/dL (65-115) H 03/15/23 16:04 Calculated Osmolality 299 mOsm/kg (285-295) H 03/15/23 16:04 Calcium 10.4 mg/dL (8.5-10.5) 03/15/23 16:04 Total Bilirubin 0.6 mg/dL (0.15-1.2) 03/15/23 16:04 AST 35 U/L (0-32) H 03/15/23 16:04 ALT 19 U/L (0-33) 03/15/23 16:04 Alkaline Phosphatase 101 U/L (35-105) 03/15/23 16:04 NT-Pro-B Natriuret Pep 7267 pg/mL (0-450) H 03/15/23 16:04 Total Protein 7.9 g/dL (6.6-8.7) 03/15/23 16:04 Albumin 4.0 g/dL (3.5-5.2) 03/15/23 16:04 Globulin 3.9 g/dL (1.3-4.6) 03/15/23 16:04 Influenza Type A Ag negative (Negative) 03/15/23 16:31 Influenza Type B Ag negative (Negative) 03/15/23 16:31 All radiology interpretation(s) finalized by discharge EKG Data EKG 1: I personally reviewed and interpreted this EKG as follows: EKG interpretation date: 03/15/23 EKG interpretation time: 16:15 Interpretation: afib with rvr hr [address] elevation qrs 89 qtc 387 Discharge Plan Discharge Patient Disposition: Home Clinical Impression: Hemoptysis Condition: Stable Prescriptions: New azithromycin 250 mg tablet See Rx Instructions .ROUTE .COMPLEX Qty: 6 0RF Rx Instructions: take 500 mg today (day 1), then 250 mg for 4 days (days 2-5) No Action levalbuterol tartrate [Xopenex HFA] 45 mcg/actuation HFA aerosol inhaler 2 inh inhalation Q6H PRN (Reason: shortness of breath or wheezing) Qty: 15 6RF guaifenesin [Mucinex Fast-Max Chest-Congest] 100 mg/5 mL liquid 200 mg PO Q4H PRN (Reason: cough) Qty: 473 3RF cholecalciferol (vitamin D3) 50 mcg (2,000 unit) capsule 50 mcg PO DAILY budesonide-formoterol [Symbicort] 160-4.5 mcg/actuation HFA aerosol inhaler 2 puff inhalation Q12H PRN chlorhexidine gluconate [Peridex] 0.12 % mouthwash 15 ml buccal BID 7 Days Qty: 200 0RF Xarelto 20 mg tablet 20 mg PO DAILY Qty: 90 3RF Rx Instructions: must administer with evening meal metoprolol succinate 50 mg tablet extended release 24 hr 50 mg PO DAILY Qty: 90 3RF levalbuterol HCl 0.63 mg/3 mL solution for nebulization 0.63 mg inhalation TID PRN (Reason: shortness of breath or wheezing) Qty: 90 3RF Lasix 40 mg tablet 40 mg PO DAILY Qty: 90 1RF potassium chloride 20 mEq tablet,ER particles/crystals 40 meq PO DAILY Qty: 90 1RF Discharge Orders: Discharge ED (Routine); Ordered 03/15/23 Ordered By: Rosie Pimentel Referrals: Osvaldo Hooper MD [Physician] - 1-3 days Aundrea Jerry FNP [Primary Care Provider] - Discharge Diet: Advance as tolerated Discharge Activity: Resume usual activity Patient Instructions: Hemoptysis Coding Level of Care Code ED Operating Room Specialist for Chg Michelle
[2023-03-15] MEDS: sodium chloride 0.9% 1,000 ML 999 ML IV (16:13)
[2023-03-15 16:21] LABS: Basophils # 0.1 10^3/uL (0.0-0.1); Basophils % 0.9 %; Eosinophils # 0.1 10^3/uL (0.0-0.8); Eosinophils % 1.4 %; Lymphocytes # 1.7 10^3/uL (0.8-4.8); Lymphocytes % 21.7 %; Mean Corpuscular HGB Conc 30.8 g/dL (30-55); Mean Corpuscular Hemoglobin 31.5 pg (27-33); Mean Corpuscular Volume 102.1 fl (85-98); Mean Platelet Volume 11.3 fL (7.4-10.4); Monocytes % 13.2 %; Neutrophils # 4.85 10^3/uL (1.8-7.7); Nucleated Red Blood Cells % 0 %; Platelet Count 220 10^3/cmm (157-399); Red Cell Distribution Width 14.2 % (12.1-15.1); White Blood Count 7.82 10^3/uL (3.29-11.43)
[2023-03-15] MEDS: dilTIAZem 5 mg/mL SDV 5 mL 10 MG IVP (16:22)
[2023-03-15 16:57] LABS: Influenza A by IFA negative (Negative); Influenza B by IFA negative (Negative)
[2023-03-15 17:29] LABS: Alanine Aminotransferase 19 U/L (0-33); Alkaline Phosphatase 101 U/L (35-105); Anion Gap 18.1 (5-19); Aspartate Amino Transferase 35 U/L (0-32); Blood Urea Nitrogen 34 mg/dL (8-23); Calcium 10.4 mg/dL (8.5-10.5); Carbon Dioxide 27 mmol/L (22-29); Chloride 99 mmol/L (98-107); Globulin 3.9 g/dL (1.3-4.6); Glucose 130 mg/dL (65-115); NT Pro B Type Natriuretic Pept 7267 pg/mL (0-450); Osmolality Calculated 299 mOsm/kg (285-295); Potassium 4.1 mmol/L (3.5-5.1); Sodium 140 mmol/L (136-145); Total Bilirubin 0.6 mg/dL (0.15-1.2); Total Protein 7.9 g/dL (6.6-8.7)
[2023-03-15 19:11] LABS: Adenovirus Not Detected (NOT DETECT); Chlamydia Pneumoniae Not Detected (NOT DETECT); Coronavirus 229E,HKU1,NL63,OC4 Not Detected (NOT DETECT); Human Metapneumovirus Not Detected (NOT DETECT); Human Rhinovirus/Enterovirus Not Detected (NOT DETECT); Influenza A Not Detected (NOT DETECT); Influenza A H1 Not Detected (NOT DETECT); Influenza A H1-2009 Not Detected (NOT DETECT); Influenza A H3 Not Detected (NOT DETECT); Influenza B Not Detected (NOT DETECT); Mycoplasma Pneumoniae Not Detected (NOT DETECT); Parainfluenza Virus Type 1 Not Detected (NOT DETECT); Parainfluenza Virus Type 2 Not Detected (NOT DETECT); Parainfluenza Virus Type 3 Not Detected (NOT DETECT); Parainfluenza Virus Type 4 Not Detected (NOT DETECT); Respiratory Syncytial Virus A Not Detected (NOT DETECT); Respiratory Syncytial Virus B Not Detected (NOT DETECT); SARS-COV-2 Not Detected (NOT DETECT)
== END 2023-03-15 18:00 | disposition home or self-care (01) ==
PROVIDERS: Emergency Provider Emergency Medicine; PCP Nurse Practitioner Family
DX: R04.2 Hemoptysis (principal); Z87.891 Personal history of nicotine dependence; I11.0 Hypertensive heart disease with heart failure; I50.9 Heart failure, unspecified; E78.5 Hyperlipidemia, unspecified; J44.9 Chronic obstructive pulmonary disease, unspecified; Z11.52 Encounter for screening for COVID-19
CPT/HCPCS: 71045; 80053; 83880; 85025; 87486; 87581; 87633; 87804; 93005; 96374; 99285; J3490; J7030

== ENCOUNTER 2023-03-28 09:18 | Observation (INO) | payer MEDICARE, OTHER, SELFPAY ==
[2023-03-28] VITALS (36 sets, daily range): BP systolic 106–138; BP diastolic 63–96; PULSE 67–122; RESP 16–35; TEMP 36.2–36.6; O2SAT 82–99; BMI 16.0
--- NOTE | 2023-03-28 06:26 | ECG_ITS ---
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 Measurements Intervals [place] Rate: 113 P: 0 NC: 0 QRS: 146 QRSD: 99 T: 68 QT: 317 QTc: 435 Interpretive Statements ATRIAL FIBRILLATION WITH RAPID VENTRICULAR RESPONSE INCOMPLETE RIGHT BUNDLE BRANCH BLOCK [90+ ms QRS DURATION, TERMINAL R IN V1/V2, 40+ ms S IN I/aVL/V4/V5/V6] RIGHT VENTRICULAR HYPERTROPHY [SOME/ALL OF: PROMINENT R IN V1, LATE TRANSITION, RAD, AMAURY, SSS] ANTEROLATERAL MYOCARDIAL INFARCTION , OF INDETERMINATE AGE [40+ ms Q WAVE IN I/aVL/V3-V6] Compared to ECG 03/15/2023 16:15:58 Incomplete right bundle-branch block now present Myocardial infarct finding still present Electronically Signed On 03-28-2023 18:34:00 FIELD CLERK by Micky Raygoza M.D. [id number]
[2023-03-28] MEDS: sodium chloride 0.9% 1,000 ML 30 ML IV (06:43)
--- NOTE | 2023-03-28 06:51 | ANES.PREANE2 ---
Documented by User: Roryalhaji Da Silva, [employer] 03/28/23 07:03 Pre-Anesthetic Assessment Height/Weight: Height 1.55 m Weight 38.555 kg Temp Pulse Resp BP Pulse Ox O2 Del Method 97.3 F L 98 16 116/78 95 Room Air 03/28/23 06:23 03/28/23 06:23 03/28/23 06:23 03/28/23 06:23 03/28/23 06:23 03/28/23 06:23 Operation Date: 03/28/23 07:00 Proposed Procedures p Bronch,EBUS, 13676, 76801, 60635, 87311, 85016, 28924, 65595, 17654, 85534, 15113, 21534, 49037, 08222,R91.1(Not Applicable) - Osvaldo Hooper MD s Ebus(Not Applicable) - Osvaldo Hooper MD Familial anesthetic complications: No Was Beta Gumaro taken within 24 hours: Yes Was Clonidine taken within 24 hours: N/A Last intake: Intake Last Liquid Date 03/27/23 Last Liquid Time 21:00 Last Solid Date 03/27/23 Last Solid Time 21:00 Social No alcohol and No tobacco (Quit 1992) Exam alert, oriented x 3 and clear to auscultation bilaterally (Decreased bilateral lower lobes) Airway Submandibular: within normal limits Cervical ROM: within normal limits Mallampati: Class II Dentition: false History/ROS No significant history except as noted and No significant complaints Pulmonary Chronic Obstructive Pulmonary Disease, Cough, Exertional Dyspnea and Shortness of Breath Lung nodules Wears 2.5L all the time CV/HEM Atrial Fibrillation, Arrythmia, Coronary Artery Disease, Congestive Heart Failure, Deep Vein Thrombosis and Hypertension CONCLUSIONS 1-Normal left ventricular cavity size. Normal left ventricular systolic function. Left ventricular ejection fraction is estimated at 55 %. In the presence of atrial fibrillation diastolic function cannot be assessed accurately. 2-Normal right ventricular size. Moderate pulmonary hypertension, RVSP 41.5 mmHg. 3-Moderately thickened mitral valve, moderate annulus calcification. No mitral valve stenosis. Mild mitral valve regurgitation. 4-Moderate aortic valve calcification. Mild aortic valve stenosis, mean gradient 3 mmHg, YEE 2.2 cm squared. Trace aortic valve regurgitation. 5-Moderate tricuspid valve regurgitation. 6-There is no pericardial effusion. 7-Right atrial pressure is around 5 mm of mercury. 8-When compared to the prior echocardiogram dated 19 September 2020 there is worsening of tricuspid valve regurgitation from mild to moderate. None reported Hepatic None reported GI None reported Metabolic None reported Musc/skel Osteoarthritis/DJD Neuropsych Neuropathy Brain aneurysm surgery in 1989 and 1990 Anesthetic Plan ASA status: 4 Anesthesia: Anesthesia Evaluation and General Risk of > 500 ml blood loss (7ml/kg in children): No Medications/Allergies Home Medications Medication Instructions Recorded Confirmed Last Taken Type guaifenesin 100 mg/5 mL oral 200 mg (10 mL) PO Q4H PRN cough 09/28/21 03/24/23 Unknown Rx liquid (Mucinex Fast-Max Chest #473 mL Congestion) chlorhexidine gluconate 0.12 % 15 ml buccal BID 7 days #200 mL 04/13/22 03/24/23 03/10/23 Rx mouthwash (Peridex) cholecalciferol (vitamin D3) 50 50 mcg PO DAILY 07/19/22 03/28/23 1 Month Ago History mcg (2,000 unit) capsule ~02/25/23 levalbuterol tartrate 45 2 inh inhalation Q6H PRN shortness 08/31/22 03/24/23 Unknown Rx mcg/actuation aerosol inhaler of breath or wheezing #15 grams (Xopenex HFA) metoprolol succinate 50 mg 50 mg PO DAILY #90 tabs 09/01/22 03/28/23 03/28/23 Rx tablet,extended release 24 hr rivaroxaban 20 mg tablet (Xarelto) 20 mg PO DAILY #90 tabs 09/01/22 03/24/23 03/25/23 Rx levalbuterol HCl 0.63 mg/3 mL 0.63 mg (3 mL) inhalation TID PRN 09/05/22 03/24/23 Unknown Rx solution for nebulization shortness of breath or wheezing #90 mL furosemide 40 mg tablet (Lasix) 40 mg PO DAILY #90 tabs 02/24/23 03/24/23 03/27/23 Rx potassium chloride 20 mEq 40 meq (2 x 20 mEq) PO DAILY #90 02/24/23 03/28/23 03/27/23 Rx tablet,extended release(part/cryst) tabs Allergies Allergy/AdvReac Type Severity Reaction Status Date / Time codeine Allergy Unknown Verified 03/24/23 13:22 Current Medications Generic Name Dose Route Start Last Admin Trade Name Freq PRN Reason Stop Dose Admin Sodium Chloride 1,000 mls @ 100 mls/hr 03/28/23 06:15 03/28/23 06:43 Sodium Chloride 0.9% IV 03/29/23 06:14 100 mls/hr .Q10H GEE Administration PFSH Anesthesia Medical History (Updated 03/24/23 @ 11:09 by Ara Acosta LPN) CHF (congestive heart failure), NYHA class III Tricuspid valve regurgitation Hyperlipidemia Brain aneurysm History of hypertension History of DVT (deep vein thrombosis) History of emphysema History of COPD Surgical History S/P brain surgery S/P hysterectomy S/P breast biopsy History of lung biopsy 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 Family History Mother Rheumatic fever Father Pulmonary embolism Other CAD (coronary artery disease) Social History Smoking and tobacco/nicotine status: former use of tobacco/nicotine Quit status (tobacco/nicotine): has quit using Year quit tobacco: 1993 - 0.5 PPD x 30 Years Second hand smoke exposure: Yes Alcohol intake: never Substance/Drug Use: never Lives independently: Yes Household members: friend(s) Housing: House Marital status: / service: No Current occupational status: 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 Patient states her heart rate is consistently above 100 at home Medications/Allergies Home Medications Medication Instructions Recorded Confirmed Last Taken Type guaifenesin 100 mg/5 mL oral 200 mg (10 mL) PO Q4H PRN cough 09/28/21 03/24/23 Unknown Rx liquid (Mucinex Fast-Max Chest #473 mL Congestion) chlorhexidine gluconate 0.12 % 15 ml buccal BID 7 days #200 mL 04/13/22 03/24/23 03/10/23 Rx mouthwash (Peridex) cholecalciferol (vitamin D3) 50 50 mcg PO DAILY 07/19/22 03/28/23 1 Month Ago History mcg (2,000 unit) capsule ~02/25/23 levalbuterol tartrate 45 2 inh inhalation Q6H PRN shortness 08/31/22 03/24/23 Unknown Rx mcg/actuation aerosol inhaler of breath or wheezing #15 grams (Xopenex HFA) metoprolol succinate 50 mg 50 mg PO DAILY #90 tabs 09/01/22 03/28/23 03/28/23 Rx tablet,extended release 24 hr rivaroxaban 20 mg tablet (Xarelto) 20 mg PO DAILY #90 tabs 09/01/22 03/24/23 03/25/23 Rx levalbuterol HCl 0.63 mg/3 mL 0.63 mg (3 mL) inhalation TID PRN 09/05/22 03/24/23 Unknown Rx solution for nebulization shortness of breath or wheezing #90 mL furosemide 40 mg tablet (Lasix) 40 mg PO DAILY #90 tabs 02/24/23 03/24/23 03/27/23 Rx potassium chloride 20 mEq 40 meq (2 x 20 mEq) PO DAILY #90 02/24/23 03/28/23 03/27/23 Rx tablet,extended release(part/cryst) tabs Allergies Allergy/AdvReac Type Severity Reaction Status Date / Time codeine Allergy Unknown Verified 03/24/23 13:22 [facility] Anesthesia Medical History (Updated 03/24/23 @ 11:09 by Ara Acosta LPN) CHF (congestive heart failure), NYHA class III Tricuspid valve regurgitation Hyperlipidemia Brain aneurysm History of hypertension History of DVT (deep vein thrombosis) History of emphysema History of COPD Surgical History S/P brain surgery S/P hysterectomy S/P breast biopsy History of lung biopsy 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 Family History Mother Rheumatic fever Father Pulmonary embolism Other CAD (coronary artery disease) Social History Smoking and tobacco/nicotine status: former use of tobacco/nicotine Quit status (tobacco/nicotine): has quit using Year quit tobacco: 1993 - 0.5 PPD x 30 Years Second hand smoke exposure: Yes Alcohol intake: never Substance/Drug Use: never Lives independently: Yes Household members: friend(s) Housing: House Marital status: / service: No Current occupational status: retired 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
--- NOTE | 2023-03-28 07:04 | P.HP_ITS ---
Providers/Chief Complaint Admitting Physician: Osvaldo Hooper MD. Primary Care Provider: NAGI Venegas Chief Complaint: R91.1 History of Present Illness Kacie Quispe is a 87 year old female coems for EBUS biopsies of right hilar PET active lesions. she has past medical history of severe emphysema, hypertension, history of lung nodule status post resection 2011, history of brain aneurysms x 2 s/p clipping,? 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 Her PET CT scan 09/24/2022 which showed mildly increased consolidation of the regular subpleural right lower lobe nodule SUV max 2.5 and mildly increased consolidation. Right perihilar nodular thickening and calcification measuring 3.7 x 1.8 SUV 5.7 mildly increased in size from August 2020; LLL 1.8 x 1.2 cm lingular nodule stable in size from January 2022 SUV max 2.4. Subcarinal lymph node 1.2 cm SUV max 5.7. During the follow-up clinic visit on 10/04/2022 I offered EBUS guided biopsies and did mention that if lymph node and station 7 is positive then she may require chemotherapy as this will be N2 -making it stage IIb or stage IIIa-patient clearly mentioned that she does not want to do chemotherapy or radiation. After extensive discussion with patient and her daughter-patient finally made it clear that she is not interested in chemo/radiation and we agreed not to order any surveillance imaging She comes with her daughter today and tells me that she would want to know her diagnosis and requested to to do a follow-up PET CT scan and see if there is progression then would think about biopsies this time to know the diagnosis and may or may not go for treatments. After extensive discussion with patient and her daughter-patient finally made it clear that she is not interested in chemo/radiation cancer treatments. I have mentioned there is no point in following these lesions on CT scans as we are not going to pursue further treatments. At this point patient says she would want to take some time to decide about whether to pursue for biopsy or at least know the diagnosis and wanted surveillance imaging. In January 2023 clinic visit She comes with daughter and requested to do biopsies and want to know the diagnosis. A PET CT scan 02/14/23 Showed PET active lesions in subcarina and right pe rihilar area . Also there is spiculated pleural based spiculated pleural based right lower lobe nodule is similar in size with similar to slightly decreased uptake. Today she is scheduled for biopsies She is currently using 2 L supplemental oxygen continuously Review of Systems General: Reports: 10 or more systems reviewed and unremarkable except in HPI and below Medications/Allergies Home Medications Medication Instructions Recorded Confirmed Last Taken Type guaifenesin 100 mg/5 mL oral 200 mg (10 mL) PO Q4H PRN cough 09/28/21 03/24/23 Unknown Rx liquid (Mucinex Fast-Max Chest #473 mL Congestion) chlorhexidine gluconate 0.12 % 15 ml buccal BID 7 days #200 mL 04/13/22 03/24/23 03/10/23 Rx mouthwash (Peridex) cholecalciferol (vitamin D3) 50 50 mcg PO DAILY 07/19/22 03/28/23 1 Month Ago History mcg (2,000 unit) capsule ~02/25/23 levalbuterol tartrate 45 2 inh inhalation Q6H PRN shortness 08/31/22 03/24/23 Unknown Rx mcg/actuation aerosol inhaler of breath or wheezing #15 grams (Xopenex HFA) metoprolol succinate 50 mg 50 mg PO DAILY #90 tabs 09/01/22 03/28/23 03/28/23 Rx tablet,extended release 24 hr rivaroxaban 20 mg tablet (Xarelto) 20 mg PO DAILY #90 tabs 09/01/22 03/24/23 03/25/23 Rx levalbuterol HCl 0.63 mg/3 mL 0.63 mg (3 mL) inhalation TID PRN 09/05/22 03/24/23 Unknown Rx solution for nebulization shortness of breath or wheezing #90 mL furosemide 40 mg tablet (Lasix) 40 mg PO DAILY #90 tabs 02/24/23 03/24/23 03/27/23 Rx potassium chloride 20 mEq 40 meq (2 x 20 mEq) PO DAILY #90 02/24/23 03/28/23 03/27/23 Rx tablet,extended release(part/cryst) tabs Allergies Allergy/AdvReac Type Severity Reaction Status Date / Time codeine Allergy Unknown Verified 03/24/23 13:22 PFSH 2 PFSH: Medical History (Updated 03/24/23 @ 11:09 by Ara Acosta LPN) CHF (congestive heart failure), NYHA class III Tricuspid valve regurgitation Hyperlipidemia Brain aneurysm History of hypertension History of DVT (deep vein thrombosis) History of emphysema History of COPD Surgical History S/P brain surgery S/P hysterectomy S/P breast biopsy History of lung biopsy 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 Family History Mother Rheumatic fever Father Pulmonary embolism Other CAD (coronary artery disease) Social History Smoking and tobacco/nicotine status: former use of tobacco/nicotine Quit status (tobacco/nicotine): has quit using Year quit tobacco: 1993 - 0.5 PPD x 30 Years Second hand smoke exposure: Yes Alcohol intake: never Substance/Drug Use: never Lives independently: Yes Household members: friend(s) Housing: House Marital status: / service: No Current occupational status: retired 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 [employer] Pets and animals: Yes Do you think of yourself as: Straight/Heterosexual Current gender identity: Female Special alyx needs: No Dietary Habits: Caffeine: Yes Caffeine intake frequency: coffee and tea Vital Signs Vitals Signs: Last Vital Signs Temp 97.3 F L 03/28/23 06:23 Pulse 98 03/28/23 06:23 Resp 16 03/28/23 06:23 BP 116/78 03/28/23 06:23 Pulse Ox 95 03/28/23 06:23 O2 Del Method Room Air 03/28/23 06:23 Weight: Weight last 48 hrs Weight 85 lb Physical Exam Narrative: EXAM NARRATIVE: General: alert, NAD HEENT: conj clear, EOMI, PERRL, mmm, Neck: supple, no meningismus Heme: no cervical LAP Respiratory: Inspection: No visible deformity of the chest wall Palpation: Trachea is mildly deviated to the right, bilateral symmetric expansion Percussion: Bilateral tympanic percussion note both anterior and posteriorly Auscultation: Bilateral clear to auscultation both anterior and posteriorly, no crackles wheezing or rhonchi Cardiovascular: rrr, nl s1s2, no mrg Abdomen: soft, nt, nd, no r/g, bs+ Extremities: pulses +, no edema, no c/c : no CVA tenderness Skin: intact, no rash MSK: no back or neck pain Neurologic: grossly intact A&P Assessment and plan (1) Lung nodule seen on imaging study: -A 6-month follow-up CT chest 09/05/2022 showed mild increase in spiculated pleural-based nodule in the superior segment right lower lobe as compared to 09/06/2021. There is adjacent pleural fluid. Nodule now measures 1.7 x 1.6 cm this should be evaluated for neoplasm. LLL nodule slightly increased in size and slightly more spiculated. Recommended 3-month follow-up CT chest stable soft tissue thickening and calcification of the right hilum and a right lower lobe bronchial tree. -We repeated a PET CT scan 09/24/2022 which showed mildly increased consolidation of the regular subpleural right lower lobe nodule SUV max 2.5 and mildly increased consolidation. Right perihilar nodular thickening and calcification measuring 3.7 x 1.8 SUV 5.7 mildly increased in size from August 2020; LLL 1.8 x 1.2 cm lingular nodule stable in size from January 2022 SUV max 2.4. Subcarinal lymph node 1.2 cm SUV max 5.7. During the follow-up clinic visit on 10/04/2022 I have mentioned right lower lobe and left lower lobe opacities did not increase in size and are not significantly PET avid making them less likely malignant. However subcarinal lymph node with SUV 5.7 as well as right perihilar soft tissue opacity with SUV 5.7 can be bi opsied to rule out malignancy although there is a calcification in the perihilar soft tissue which may be secondary to inflammation. -I did mention that if lymph node and station 7 is positive then she may require chemotherapy as this will be N2 -making it stage IIb or stage IIIa-patient clearly mentioned that she does not want to do chemotherapy or radiation - After extensive discussion with patient and her daughter-patient finally made it clear that she is not interested in chemo/radiation cancer treatments. I have mentioned there is no point in following these lesions on CT scans as we a re not going to pursue further treatments. At this point patient says she would want to take some time to decide about whether to pursue for biopsy or at least know the diagnosis. She says she would call and let me know. For now we agreed not to order any surveillance imaging. In January 2023 clinic visit She comes with daughter and requested to do biopsies and want to know the diagnosis and will decide on whether to go for treatments or not later. A PET CT scan 02/14/23 Showed PET active lesions in subcarina and right perihilar area . Also there is spiculated pleural based spiculated pleural based right lower lobe nodule is similar in size with similar to slightly decreased uptake. Today she is scheduled for endobronchial ultrasound-guided biopsies of right hilar PET active lesions Coding Level of Care Code Acute Code for Chg Fwd Diagnoses Lung nodule seen on imaging study R91.1 Time Spent (min) 26
[2023-03-28] MEDS: dilTIAZem 30 mg Tablet PO ×3 (08:31→21:09)
--- NOTE | 2023-03-28 09:29 | PC.NURSE ---
Patient arrived to the floor via wheelchair. Patient is awake,alert and oriented to room and call lynch. Patient is A&Ox4. Patient came to us from GI due to afib rvr. Patient is still in afib with RVR however, rate seems to be controlled afib with a rate in the 80's. Nurse has educated patient and will continue to monitor.
--- NOTE | 2023-03-28 10:03 | P.HP_ITS ---
Documented by User: YOSEF Hanson STD 03/28/23 11:36 Providers/Chief Complaint 2 Admitting Physician: Rudy Chin MD Primary Care Provider: NAGI Venegas Chief Complaint: R91.1 History of Present Illness Mrs. Quispe is a pleasant 87 year old female has past medical history of CHF, hyperlipidemia, HTN, DVT, emphysema, COPD, and brain aneurysm who present to the GI lab today for scheduled EBUS biopsies of right hilar PET active lesions and upon assessing patient for procedure today, patient was noted to be in afib. Dr. Hooper consulted internal medicine for managment of afib w/ RVR. Patient has known history of afib and was recently evaluated in the ED on 03/15/23 for hemoptysis and appeared to be in afib at this time as well. Ms. Quispe denied any symptoms associated with her afib- denied chest pain, palpitations, shortness of breath, and N&V. She reports compliance with home medications, she stopped taking her rivaroxiban as instructed for this scheduled biopsy two days ago. She denies bloody stools. Patient was seen in the GI lab by Dr. Chin and at this time orders were placed to transfer patient to [facility] floor and cardizem PO was administered. When I interviewed Mrs. Cruz on the [facility] floor her heartrate was noted to be in afib rhythm with a heartrate in the 80s. She appeared to be in no distress at this time and denied chest pain, heart palpitations. Ms. Quispe was on 2L NC, this is her home baseline. Medications/Allergies Home Medications Medication Instructions Recorded Confirmed Last Taken Type guaifenesin 100 mg/5 mL oral 200 mg (10 mL) PO Q4H PRN cough 09/28/21 03/24/23 Unknown Rx liquid (Mucinex Fast-Max Chest #473 mL Congestion) chlorhexidine gluconate 0.12 % 15 ml buccal BID 7 days #200 mL 04/13/22 03/24/23 03/10/23 Rx mouthwash (Peridex) cholecalciferol (vitamin D3) 50 50 mcg PO DAILY 07/19/22 03/28/23 1 Month Ago History mcg (2,000 unit) capsule ~02/25/23 levalbuterol tartrate 45 2 inh inhalation Q6H PRN shortness 08/31/22 03/24/23 Unknown Rx mcg/actuation aerosol inhaler of breath or wheezing #15 grams (Xopenex HFA) metoprolol succinate 50 mg 50 mg PO DAILY #90 tabs 09/01/22 03/28/23 03/28/23 Rx tablet,extended release 24 hr rivaroxaban 20 mg tablet (Xarelto) 20 mg PO DAILY #90 tabs 09/01/22 03/24/23 03/25/23 Rx levalbuterol HCl 0.63 mg/3 mL 0.63 mg (3 mL) inhalation TID PRN 09/05/22 03/24/23 Unknown Rx solution for nebulization shortness of breath or wheezing #90 mL furosemide 40 mg tablet (Lasix) 40 mg PO DAILY #90 tabs 02/24/23 03/24/23 03/27/23 Rx potassium chloride 20 mEq 40 meq (2 x 20 mEq) PO DAILY #90 02/24/23 03/28/23 03/27/23 Rx tablet,extended release(part/cryst) tabs Allergies Allergy/AdvReac Type Severity Reaction Status Date / Time codeine Allergy Unknown Verified 03/24/23 13:22 PFSH Acute 2 PFSH: Medical History (Updated 03/28/23 @ 11:42 by Rudy Chin MD) CHF (congestive heart failure), NYHA class III Tricuspid valve regurgitation Hyperlipidemia Brain aneurysm History of hypertension History of DVT (deep vein thrombosis) History of emphysema History of COPD Surgical History S/P brain surgery S/P hysterectomy S/P breast biopsy History of lung biopsy 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 Family History Mother Rheumatic fever Father Pulmonary embolism Other CAD (coronary artery disease) Social History Smoking and tobacco/nicotine status: former use of tobacco/nicotine Quit status (tobacco/nicotine): has quit using Year quit tobacco: 1993 - 0.5 PPD x 30 Years Second hand smoke exposure: Yes Alcohol intake: never Substance/Drug Use: never Lives independently: Yes Household members: friend(s) Housing: House Marital status: / service: No 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 HEENT: Atraumatic normocephalic. Oropharynx clear. Neck supple Cardiovascular irregular rate of afib w/ rvr and rhythm without murmur, no S3 or S4 Lungs clear no wheezing or crackles. On 2L NC. Abdomen is soft with positive bowel sounds. No obvious organomegaly exams deferred. Extremities no cyanosis, clubbing, or edema. Neuro: A&Ox3, moves all extremities. Skin no rash. Data 03/28/23 10:25 03/28/23 10:25 A&P Assessment and plan (1) Atrial fibrillation with RVR: (2) Lung nodule seen on imaging study: (3) History of COPD: Coding Level of Care Code 85847 Diagnoses Atrial fibrillation with RVR I48.91 Lung nodule seen on imaging study R91.1 History of COPD Z87.09 Time Spent (min) 42 Documented by User: Rudy Chin MD 03/28/23 11:47 Providers/Chief Complaint 2 Chief Complaint: R91.1 History of Present Illness Mrs. Quispe is a pleasant 87 year old female has past medical history of CHF, hyperlipidemia, HTN, DVT, emphysema, COPD, and brain aneurysm who present to the GI lab today for scheduled EBUS biopsies of right hilar PET active lesions and upon assessing patient for procedure today, patient was noted to be in afib. Dr. Hooper consulted internal medicine for managment of afib w/ RVR. Patient has known history of afib and was recently evaluated in the ED on 03/15/23 for hemoptysis and appeared to be in afib at this time as well. Ms. Quispe denied any symptoms associated with her afib- denied chest pain, palpitations, shortness of breath, and N&V. She reports compliance with home medications, she stopped taking her rivaroxiban as instructed for this scheduled biopsy two days ago. She denies bloody stools. Patient was seen in the GI lab by Dr. Chin and at this time orders were placed to transfer patient to [facility] floor and cardizem PO was administered. When I interviewed Mrs. Cruz on the [facility] floor her heartrate was noted to be in afib rhythm with a heartrate in the 80s. She appeared to be in no distress at this time and denied chest pain, heart palpitations. Ms. Quispe was on 2L NC, this is her home baseline. In summary, she was here for an outpatient procedure and was found to be in atrial fibrillation with rapid ventricular rate. Patient reports her rate is hardly ever well-controlled, usually being over 100. They were unable to proceed with her bronchoscopy secondary to her elevated rate. While awaiting a room, I initiated oral Cardizem 30 mg. Her stock receiver, had also already reviewed her case with cardiology who will be consulting. Review of Systems 2 General: Reports: 10 or more systems reviewed and unremarkable except in HPI and below Card: Reports: palpitations; Denies: chest pain Resp: Denies: dyspnea GI: Denies: abdominal pain, nausea, vomiting, hematochezia or melena Medications/Allergies Home Medications Medication Instructions Recorded Confirmed Last Taken Type guaifenesin 100 mg/5 mL oral 200 mg (10 mL) PO Q4H PRN cough 09/28/21 03/24/23 Unknown Rx liquid (Mucinex Fast-Max Chest #473 mL Congestion) chlorhexidine gluconate 0.12 % 15 ml buccal BID 7 days #200 mL 04/13/22 03/24/23 03/10/23 Rx mouthwash (Peridex) cholecalciferol (vitamin D3) 50 50 mcg PO DAILY 07/19/22 03/28/23 1 Month Ago History mcg (2,000 unit) capsule ~02/25/23 levalbuterol tartrate 45 2 inh inhalation Q6H PRN shortness 08/31/22 03/24/23 Unknown Rx mcg/actuation aerosol inhaler of breath or wheezing #15 grams (Xopenex HFA) metoprolol succinate 50 mg 50 mg PO DAILY #90 tabs 09/01/22 03/28/23 03/28/23 Rx tablet,extended release 24 hr rivaroxaban 20 mg tablet (Xarelto) 20 mg PO DAILY #90 tabs 09/01/22 03/24/23 03/25/23 Rx levalbuterol HCl 0.63 mg/3 mL 0.63 mg (3 mL) inhalation TID PRN 09/05/22 03/24/23 Unknown Rx solution for nebulization shortness of breath or wheezing #90 mL furosemide 40 mg tablet (Lasix) 40 mg PO DAILY #90 tabs 02/24/23 03/24/23 03/27/23 Rx potassium chloride 20 mEq 40 meq (2 x 20 mEq) PO DAILY #90 02/24/23 03/28/23 03/27/23 Rx tablet,extended release(part/cryst) tabs Allergies Allergy/AdvReac Type Severity Reaction Status Date / Time codeine Allergy Unknown Verified 03/24/23 13:22 PFSH Acute 2 PFSH: Medical History (Updated 03/28/23 @ 11:42 by Rudy Chin MD) CHF (congestive heart failure), NYHA class III Tricuspid valve regurgitation Hyperlipidemia Brain aneurysm History of hypertension History of DVT (deep vein thrombosis) History of emphysema History of COPD Surgical History S/P brain surgery S/P hysterectomy S/P breast biopsy History of lung biopsy 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 Family History Mother Rheumatic fever Father Pulmonary embolism Other CAD (coronary artery disease) Social History Smoking and tobacco/nicotine status: former use of tobacco/nicotine Quit status (tobacco/nicotine): has quit using Year quit tobacco: 1993 - 0.5 PPD x 30 Years Second hand smoke exposure: Yes Alcohol intake: never Substance/Drug Use: never Lives independently: Yes Household members: friend(s) Housing: House Marital status: / service: No Current occupational status: retired 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 I have ordered a TSH and is normal Albumin and calcium are normal I have ordered a chest x-ray EKG which I reviewed demonstrates atrial fibrillation with rapid ventricular rate, occasional PVC, rate around 110, with right axis deviation. Nonspecific ST-T wave changes are noted and incomplete right bundle. A&P Assessment and plan (1) Atrial fibrillation with RVR: Patient presents with atrial fibrillation with rapid ventricular rate She has a past history of chronic A-fib Will obtain a cardiology consult I have initiated p.o. Cardizem. Hopefully this along with her metoprolol which she did take this morning will be enough to control her rhythm Defer to cardiology whether they want an echo Magnesium and TSH were checked and normal Will obtain a chest x-ray Anticoagulation being held as she will likely have a bronchoscopy tomorrow (2) Lung nodule seen on imaging study: Patient with history of lung nodule, with some activity on PET scan She was scheduled for bronchoscopy today but that has been deferred Pulmonary consult will be obtained, and possible bronchoscopy tomorrow. She will be n.p.o. after midnight for this. (3) History of COPD: Continue her bronchodilator as needed which she is on at home, in the form of albuterol nebulized in the hospital Plan Other medical problems as outlined in past medical history Full code currently Heparin can be used for DVT prophylaxis but will only provide 1 dose now and hold any further doses, as she may have a bronchoscopy tomorrow. SCDs will be used as well. Attestations 2 Medical Necessity Statement*: Will need less than 2 midnight stay for evaluation and treatment of A-fib with RVR. I entered her inpatient admission order in error. Will change status currently. Diagnoses Atrial fibrillation with RVR I48.91 Lung nodule seen on imaging study R91.1 History of COPD Z87.09 Time Spent (min) 42
[2023-03-28 10:51] LABS: Basophils % 0.5 %; Eosinophils # 0.1 10^3/uL (0.0-0.8); Eosinophils % 1.4 %; Hematocrit 42.2 % (36-47); Lymphocytes # 0.9 10^3/uL (0.8-4.8); Lymphocytes % 11.8 %; Mean Corpuscular HGB Conc 31.3 g/dL (30-55); Mean Corpuscular Hemoglobin 31.9 pg (27-33); Mean Corpuscular Volume 101.9 fl (85-98); Mean Platelet Volume 11.1 fL (7.4-10.4); Monocytes # 0.6 10^3/uL (0.2-0.9); Monocytes % 8.1 %; Neutrophils # 5.66 10^3/uL (1.8-7.7); Neutrophils % 77.8 %; Nucleated Red Blood Cells % 0 %; Platelet Count 181 10^3/cmm (157-399); Red Blood Count 4.14 10^6/uL (3.85-5.65); Red Cell Distribution Width 14.4 % (12.1-15.1); White Blood Count 7.28 10^3/uL (3.29-11.43)
[2023-03-28 11:18] LABS: Alanine Aminotransferase 16 U/L (0-33); Albumin Level 3.5 g/dL (3.5-5.2); Alkaline Phosphatase 88 U/L (35-105); Anion Gap 12.2 (5-19); Aspartate Amino Transferase 33 U/L (0-32); Blood Urea Nitrogen 29 mg/dL (8-23); Calcium 9.4 mg/dL (8.5-10.5); Carbon Dioxide 31 mmol/L (22-29); Chloride 102 mmol/L (98-107); Globulin 3.2 g/dL (1.3-4.6); Glucose 147 mg/dL (65-115); Magnesium 2.1 mg/dL (1.7-2.3); Osmolality Calculated 301 mOsm/kg (285-295); Potassium 4.2 mmol/L (3.5-5.1); Sodium 141 mmol/L (136-145); Thyroid Stimulating Hormone 2.48 uIU/mL (0.27-4.20); Total Bilirubin 0.5 mg/dL (0.15-1.2); Total Protein 6.7 g/dL (6.6-8.7)
--- NOTE | 2023-03-28 11:41 | XRR_ITS ---
PROCEDURE INFORMATION: Exam: XR Chest Exam date and time: 03/28/2023 11:45 AM Age: 87 years old Clinical indication: Other: Arrhythmia; Prior surgery; Surgery date: 6+ months; Surgery type: RT lung TECHNIQUE: Imaging protocol: Radiologic exam of the chest. Views: 1 view. COMPARISON: CR XR chest 1V portable [id number] 03/15/2023 3:43 PM FINDINGS: Lungs: Features of pulmonary emphysema again noted. Pleural spaces: Small right pleural effusion again seen. Heart/Mediastinum: Increased cardiac silhouette again noted. Bones/joints: No significant pathology. XR/XR chest 1V portable [id number] IMPRESSION: Stable exam. Small right pleural effusion increased cardiac silhouette again noted. Underlying COPD again noted.
[2023-03-28 12:18] LABS: Glucose Point of Care 131 mg/dL (70-110)
[2023-03-28] MEDS: heparin 5,000 unit/mL INJ 1 mL 5000 UNIT SUBCUT (12:47)
--- NOTE | 2023-03-28 17:40 | P.CONIM_ITS ---
Providers/Reason For Consult 2 Consulting Physician/Specialty*: Micky Raygoza MD/ Cardiology Reason for Consult*: Afib with RVR Requesting Physician: Dr Chin Attending Physician: Rudy Chin MD Primary Care Provider: NAGI Venegas History of Present Illness History of Present Illness Kacie Quispe is a 87 year old female with past medical history of atrial fibrillation, COPD who was here for pulmonary procedure with Dr. Hooper. The procedure was canceled because of atrial fibrillation with RVR. She has been started on Cardizem p.o. 30 mg every 6 hours. Heart rate is better controlled now. Review of Systems 2 Const: Denies: fever(s) or chills Card: Reports: chest pain, palpitations, irregular heart rhythm, lightheadedness, pre-syncope and dyspnea on exertion; Denies: swelling of feet/ankles, syncope, orthopnea or leg pain with exertion Resp: Reports: dyspnea; Denies: productive cough or non-productive cough Musc: Denies: neck pain or back pain Neuro: Reports: dizziness; Denies: headache(s) Psych: Denies: anxiety, depression, suicidal ideation or homicidal ideation Jamin/Lymph: Reports: easy bruising and easy bleeding Medications/Allergies Home Medications Medication Instructions Recorded Confirmed Last Taken Type guaifenesin 100 mg/5 mL oral 200 mg (10 mL) PO Q4H PRN cough 09/28/21 03/24/23 Unknown Rx liquid (Mucinex Fast-Max Chest #473 mL Congestion) chlorhexidine gluconate 0.12 % 15 ml buccal BID 7 days #200 mL 04/13/22 03/24/23 03/10/23 Rx mouthwash (Peridex) cholecalciferol (vitamin D3) 50 50 mcg PO DAILY 07/19/22 03/28/23 1 Month Ago History mcg (2,000 unit) capsule ~02/25/23 levalbuterol tartrate 45 2 inh inhalation Q6H PRN shortness 08/31/22 03/24/23 Unknown Rx mcg/actuation aerosol inhaler of breath or wheezing #15 grams (Xopenex HFA) metoprolol succinate 50 mg 50 mg PO DAILY #90 tabs 09/01/22 03/28/23 03/28/23 Rx tablet,extended release 24 hr rivaroxaban 20 mg tablet (Xarelto) 20 mg PO DAILY #90 tabs 09/01/22 03/24/23 03/25/23 Rx levalbuterol HCl 0.63 mg/3 mL 0.63 mg (3 mL) inhalation TID PRN 09/05/22 03/24/23 Unknown Rx solution for nebulization shortness of breath or wheezing #90 mL furosemide 40 mg tablet (Lasix) 40 mg PO DAILY #90 tabs 02/24/23 03/24/23 03/27/23 Rx potassium chloride 20 mEq 40 meq (2 x 20 mEq) PO DAILY #90 02/24/23 03/28/23 03/27/23 Rx tablet,extended release(part/cryst) tabs Allergies Allergy/AdvReac Type Severity Reaction Status Date / Time codeine Allergy Unknown Verified 03/24/23 13:22 Current Medications Generic Name Dose Route Start Last Admin Trade Name Freq PRN Reason Stop Dose Admin Diltiazem HCl 30 mg 03/28/23 14:30 03/28/23 14:33 Diltiazem 30 Mg Tablet PO 30 mg Q6H GEE Administration PFSH Acute 2 PFSH: Medical History CHF (congestive heart failure), NYHA class III Tricuspid valve regurgitation Hyperlipidemia Brain aneurysm History of hypertension History of DVT (deep vein thrombosis) History of emphysema History of COPD Surgical History S/P brain surgery S/P hysterectomy S/P breast biopsy History of lung biopsy 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 Family History Mother Rheumatic fever Father Pulmonary embolism Other CAD (coronary artery disease) Social History Smoking and tobacco/nicotine status: former use of tobacco/nicotine Quit status (tobacco/nicotine): has quit using Year quit tobacco: 1993 - 0.5 PPD x 30 Years Second hand smoke exposure: Yes Alcohol intake: never Substance/Drug Use: never Lives independently: Yes Household members: friend(s) Housing: House Marital status: / service: No Current occupational status: retired 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 [employer] Pets and animals: Yes Do you think of yourself as: Straight/Heterosexual Current gender identity: Female Special alyx needs: No Vitals/I&O/Wt Last Vital Signs Temp 97.2 F L 03/28/23 07:36 Pulse 83 03/28/23 16:00 Resp 22 H 03/28/23 16:00 BP 131/74 03/28/23 16:00 Pulse Ox 95 03/28/23 16:00 O2 Del Method Nasal Cannula 03/28/23 14:18 O2 Flow Rate 2 03/28/23 14:18 03/28/23 03/28/23 03/28/23 06:59 14:59 22:59 Intake Total 220 / 220 Balance 220 / 220 Weight last 48 hrs Weight 85 lb Weight 85 lb Physical Exam 2 Narrative: GENERAL: Patient is alert, awake and oriented x3. [] NECK: No jugular vein distension. [] HEENT: No cyanosis. No icterus. No pallor. [] HEART: Irregularly irregular, S1 and S2. LUNGS: Clear to auscultate bilaterally. [] CENTRAL NERVOUS SYSTEM: Grossly nonfocal. [] EXTREMITIES: Lower extremities with 1+ edema bilaterally Data 03/29/23 03:40 03/29/23 03:40 A&P Assessment and plan (1) Atrial fibrillation with RVR: (2) Lung nodule seen on imaging study: (3) History of COPD: Plan Heart rate is better controlled on p.o. Cardizem 30 mg every 6 and metoprolol. We will uptitrate metoprolol to 100 mg twice daily. Can switch to extended release Cardizem tomorrow. If heart rate is controlled by tomorrow morning, can proceed with the procedure. Resume anticoagulation as outpatient Thank you for involving us with care of this patient. Will continue to follow. Please call with questions. Consult Attestations 2 Medical Necessity Statement: Care expected to cross 2 midnights. Coding Level of Care Code Acute Code for [facility] Fwd Diagnoses Atrial fibrillation with RVR I48.91 Lung nodule seen on imaging study R91.1 History of COPD Z87.09
[2023-03-28] MEDS: metoprolol tartrate 50 mg Tablet 100 MG PO (21:09)
[2023-03-29] VITALS (62 sets, daily range): BP systolic 102–126; BP diastolic 54–90; PULSE 66–103; RESP 16–34; TEMP 36.4–36.7; O2SAT 92–100; BMI 16.0
[2023-03-29 03:53] LABS: Basophils % 0.5 %; Eosinophils # 0.2 10^3/uL (0.0-0.8); Eosinophils % 3.1 %; Hematocrit 38.8 % (36-47); Lymphocytes # 1.1 10^3/uL (0.8-4.8); Lymphocytes % 18.7 %; Mean Corpuscular HGB Conc 30.4 g/dL (30-55); Mean Corpuscular Hemoglobin 31.3 pg (27-33); Mean Corpuscular Volume 102.9 fl (85-98); Mean Platelet Volume 10.7 fL (7.4-10.4); Monocytes # 0.7 10^3/uL (0.2-0.9); Monocytes % 12.5 %; Neutrophils # 3.73 10^3/uL (1.8-7.7); Neutrophils % 64.5 %; Nucleated Red Blood Cells % 0 %; Platelet Count 163 10^3/cmm (157-399); Red Blood Count 3.77 10^6/uL (3.85-5.65); Red Cell Distribution Width 14.4 % (12.1-15.1); White Blood Count 5.78 10^3/uL (3.29-11.43)
[2023-03-29 04:16] LABS: Anion Gap 13.5 (5-19); Blood Urea Nitrogen 34 mg/dL (8-23); Calcium 9.7 mg/dL (8.5-10.5); Carbon Dioxide 29 mmol/L (22-29); Chloride 102 mmol/L (98-107); Glucose 118 mg/dL (65-115); Osmolality Calculated 299 mOsm/kg (285-295); Potassium 4.5 mmol/L (3.5-5.1); Sodium 140 mmol/L (136-145)
--- NOTE | 2023-03-29 07:51 | PC.SOCIAL ---
IMM Update pg 2 of IMM not updated @ this time as patient is in observation status.
--- NOTE | 2023-03-29 08:34 | P.PN_ITS ---
Subjective 2 Subjective: Patient resting in bed on 2 L nasal cannula, denies shortness of breath, chest pain. She has been up to the bathroom several times and denies dizziness. Patient currently n.p.o. for scheduled biopsy. Medications: Reviewed: Yes Medication Review Details: Vitals/I&O/Wt Last Vital Signs Temp 97.7 F 03/29/23 03:50 Pulse 96 03/29/23 07:40 Resp 16 03/29/23 07:40 BP 116/54 03/29/23 03:50 Pulse Ox 94 03/29/23 07:40 O2 Del Method Nasal Cannula 03/29/23 07:40 O2 Flow Rate 2 03/29/23 07:40 03/28/23 03/29/23 03/29/23 22:59 06:59 14:59 Intake Total 180 / 400 Balance 180 / 400 Weight last 48 hrs Weight 85 lb Weight 85 lb Weight 85 lb Physical Exam 2 Narrative: General exam is a white female, no distress, completely conversant. HEENT: Atraumatic normocephalic. Oropharynx clear. Neck supple Cardiovascular irregular rate of afib w/ rvr and rhythm without murmur, no S3 or S4 Lungs clear no wheezing or crackles. On 2L NC. Abdomen is soft with positive bowel sounds. No obvious organomegaly exams deferred. Extremities no cyanosis, clubbing, or edema. Neuro: A&Ox3, moves all extremities. Skin no rash. Data 03/29/23 03:40 03/29/23 03:40 A&P Assessment and plan (1) Atrial fibrillation with RVR: Patient presents with atrial fibrillation with rapid ventricular rate, she has a known past history of chronic A-fib Cardiology consult Continue p.o. Cardizem Q6 HR. Increased metoprolol to 100mg BID per cardiology recommendation. Defer to cardiology whether they want an echo Will obtain a chest x-ray Anticoagulation being held as she will have bronchoscopy today (2) Lung nodule seen on imaging study: Patient with history of lung nodule, with some activity on PET scan. She was scheduled for bronchoscopy today Pulmonary consult will be obtained, and bronchoscopy today. She will be n.p.o. for this. (3) History of COPD: Continue her bronchodilator as needed which she is on at home, in the form of albuterol nebulized in the hospital Plan Other medical problems as outlined in past medical history Full code currently Heparin can be used for DVT prophylaxis but will only provide 1 dose now and hold any further doses, as she may have a bronchoscopy tomorrow. SCDs will be used as well. Coding Level of Care Code Acute Code for [facility] Fwd Diagnoses Atrial fibrillation with RVR I48.91 Lung nodule seen on imaging study R91.1 History of COPD Z87.09
--- NOTE | 2023-03-29 09:12 | PM.PN ---
Subjective Subjective: Patient doing well. No chest pain. Vitals/I&O/Wt Last Vital Signs Temp 97.7 F 03/29/23 03:50 Pulse 96 03/29/23 07:40 Resp 16 03/29/23 07:40 BP 116/54 03/29/23 03:50 Pulse Ox 94 03/29/23 07:40 O2 Del Method Nasal Cannula 03/29/23 07:40 O2 Flow Rate 2 03/29/23 07:40 03/28/23 03/29/23 03/29/23 22:59 06:59 14:59 Intake Total 180 / 400 Balance 180 / 400 Weight last 48 hrs Weight 85 lb Weight 85 lb Weight 85 lb Physical Exam Narrative: GENERAL: Patient is alert, awake and oriented x3. [] NECK: No jugular vein distension. [] HEENT: No cyanosis. No icterus. No pallor. [] HEART: Irregularly irregular, S1 and S2. LUNGS: Clear to auscultate bilaterally. [] CENTRAL NERVOUS SYSTEM: Grossly nonfocal. [] EXTREMITIES: Lower extremities with 1+ edema bilaterally Data 03/29/23 03:40 03/29/23 03:40 A&P Assessment and plan (1) Atrial fibrillation with RVR: (2) Lung nodule seen on imaging study: (3) History of COPD: Plan Patient's heart rate is better controlled. Continue Cardizem and metoprolol. Patient is stable to be discharged from cardiology standpoint. Attestations Medical Necessity Statement*: Care expected to cross 2 midnights. Coding Level of Care Code Acute Code for [facility] Diagnoses Atrial fibrillation with RVR I48.91 Lung nodule seen on imaging study R91.1 History of COPD Z87.09
[2023-03-29] MEDS: dilTIAZem 30 mg Tablet PO ×2 (09:39→16:58)
[2023-03-29] MEDS: metoprolol tartrate 50 mg Tablet 100 MG PO (09:39)
[2023-03-29] MEDS: sodium chloride 0.9% 1,000 ML 50 ML IV (09:40)
--- NOTE | 2023-03-29 13:00 | ANES.PAUD2 ---
Pre-Anesthetic Update Pre-Anesthetic Assessment: Date of Surgery/Procedure: 03/29/23 Proposed Procedure: Operation Date: 03/28/23 07:00 Proposed Procedures p Bronch,EBUS, 36664, 67277, 57536, 54217, 07042, 57959, 84085, 66215, 06233, 01914, 21208, 68413, 55207,R91.1(Not Applicable) - Osvaldo Hooper MD s Ebus(Not Applicable) - Osvaldo Hooper MD Operation Date: 03/29/23 13:00 Proposed Procedures p Ebus(Not Applicable) - Osvaldo Hooper MD Any changes to Pre-Anesthetic Assessment?: Yes Last Intake: Intake Last Liquid Date 03/28/23 Last Liquid Time 07:00 Last Solid Date 03/28/23 Last Solid Time 18:30 Labs Last 48hrs: Short CBC 03/28/23 03/29/23 Range/Units 10:25 03:40 WBC 7.28 5.78 (3.29-11.43) 10^ 3/uL Hgb 13.20 11.80 (11.27-16.99) g/ dL Hct 42.2 38.8 (36-47) % MCV 101.9 H 102.9 H (85-98) fl Plt Count 181 163 (157-399) 10^3/c mm Neut % (Auto) 77.8 64.5 % Neut # (Auto) 5.66 3.73 (1.8-7.7) 10^3/u L BMP 03/28/23 03/29/23 10:25 03:40 Sodium 141 140 Potassium 4.2 4.5 Chloride 102 102 Carbon Dioxide 31 H 29 BUN 29 H 34 H Creatinine 1.0 H 1.2 H Glucose 147 H 118 H Calcium 9.4 9.7 Liver Function 03/28/23 Range/Units 10:25 Total Bilirubin 0.5 (0.15-1.2) mg/dL AST 33 H (0-32) U/L ALT 16 (0-33) U/L Alkaline Phosphata se 88 (35-105) U/L Albumin 3.5 (3.5-5.2) g/dL Vitals: Temperature 97.5 F L 03/29/23 14:32 Temperature Source Tympanic 03/29/23 14:32 Pulse Rate 86 03/29/23 15:02 Respiratory Rate 22 H 03/29/23 15:02 Respiratory Effort Spontaneous, Non- Labored 03/29/23 12:34 Respiratory Depth Normal 03/29/23 12:34 Respiratory Patter n Normal 03/28/23 20:13 Blood Pressure 126/90 03/29/23 15:02 Blood Pressure Teodora n 102 03/29/23 15:02 Blood Pressure Pos ition Right Lateral 03/29/23 03:50 Pulse Oximetry 97 03/29/23 15:02 Oxygen Delivery Me thod Nasal Cannula 03/29/23 15:02 Oxygen Flow Rate 3 03/29/23 15:02 Exam: Pre-Anes Outpt Exam: alert, oriented x 3, clear to auscultation bilaterally and regular rate & rhythm Cardiac Studies: Echocardiogram 04/07/21 Echocardiogram Ultrasound 09/18/20 Cardiac Event Monitor 03/09/23
[2023-03-29] MEDS: lidocaine 1% INJ 10 mL (per mL) XX (13:19)
[2023-03-29] MEDS: sodium chloride 0.9% 1,000 ML 30 ML IV (13:20)
[2023-03-29 14:02] LABS: Apprearance, Bronch Wash Bloody (CLEAR); Bronch Source Right Lower Lobe; Color, Bronc Wash Red
[2023-03-29 14:04] LABS: Cyto Order Verification Order Verified
[2023-03-29] MEDS: EPINEPHrine 1 mg/mL INJ XX (14:23)
--- NOTE | 2023-03-29 14:27 | P.OP_ITS ---
Operative Report Date of procedure: March 29, 2023 Pre-op diagnosis: PET active suspected malignancy right hilar and subcarinal lymph node- Post-op diagnosis: Suspected malignancy Procedure done: Dx Bronchoscope w/BAL Dx Bronchoscopy w/Bronchial or Endobronchial biopsy(s), single or multiple sites Bronchoscopy w/ therapeutic aspiration of the tracheobronchial tree (clearance of airway secretions, removal of mucus plugs) EBUS Sampling 2 nodes Surgeon: Osvaldo Hooper MD Brief History: Kacie Quispe is a 87 year old female comes for EBUS biopsies of right hilar PET active lesions. she has past medical history of severe emphysema, hypertension, history of lung nodule status post resection 2011, history of brain aneurysms x 2 s/p clipping,? 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 Her PET CT scan 09/24/2022 which showed mildly increased consolidation of the regular subpleural right lower lobe nodule SUV max 2.5 and mildly increased consolidation. Right perihilar nodular thickening and calcification measuring 3.7 x 1.8 SUV 5.7 mildly increased in size from August 2020; LLL 1.8 x 1.2 cm lingular nodule stable in size from January 2022 SUV max 2.4. Subcarinal lymph node 1.2 cm SUV max 5.7. During the follow-up clinic visit on 10/04/2022 I offered EBUS guided biopsies and did mention that if lymph node and station 7 is positive then she may require chemotherapy as this will be N2 -making it stage IIb or stage IIIa-patient clearly mentioned that she does not want to do chemotherapy or radiation. After extensive discussion with patient and her daughter-patient finally made it clear that she is not interested in chemo/radiation and we agreed not to order any surveillance imaging She comes with her daughter today and tells me that she would want to know her diagnosis and requested to to do a follow-up PET CT scan and see if there is progression then would think about biopsies this time to know the diagnosis and may or may not go for treatments. After extensive discussion with patient and her daughter-patient finally made it clear that she is not interested in chemo/radiation cancer treatments. I have mentioned there is no point in following these lesions on CT scans as we are not going to pursue further treatments. At this point patient says she would want to take some time to decide about whether to pursue for biopsy or at least know the diagnosis and wanted surveillance imaging. In January 2023 clinic visit She comes with daughter and requested to do biopsies and want to know the diagnosis. A PET CT scan 02/14/23 Showed PET active lesions in subcarina and right perihilar area . Also there is spiculated pleural based spiculated pleural based right lower lobe nodule is similar in size with similar to slightly decreased uptake. She came yesterday for scheduled EBUS biopsies however she was in A-fib RVR and so we decided to admit her. She was started on Cardizem as well as continued metoprolol and her A-fib is well-controlled. She is scheduled for EBUS biopsies today Procedure: Dx Bronchoscope w/BAL Dx Bronchoscopy w/Bronchial or Endobronchial biopsy(s), single or multiple sites Bronchoscopy w/ therapeutic aspiration of the tracheobronchial tree (clearance of airway secretions, removal of mucus plugs) EBUS Sampling 2 nodes Indication: PET/CT 02/14/2023-PET active soft tissue density extending in right perihilar region, prominent subcarinal lymph node- Anesthesia: General anesthesia. Local anesthesia: The vishnu in the right and left mainstem bronchi were an esthetized with 1% lidocaine, 3 mL. Description of the procedure: The procedure was explained to the patient and the consent was obtained. The patient was brought to the OR. The patient underwent induction for general anesthesia and endotracheal tube was placed. The bronchoscope was advanced through the ET tube. The distal trachea was visualized. There were secretions which were suctioned right away. Tracheal mucosa appeared normal, no endotracheal lesion was seen. The vishnu was sharp. 1 mL each of 1% lidocaine was instilled in the trachea the right and left mainstem bronchi for local anesthesia. In a systematic manner bilateral bronchial tree was then examined. The bronchoscope was then introduced into the right mainstem bronchus. Right upper lobe, middle lobe, lower lobe subsegments were inspected up to third subsegmental level. There is an endobronchial lesion seen in right lower lobe bronchial mucosa. There were some mild secretions which were suctioned right away. The bronchoscope was advanced into the left mainstem bronchus. The left upper lobe, lingula, lower lobe were examined up to the third subsegmental level and no abnormalities were identified. Mucosa of left upper lobe, lingula, lower lobe appeared normal with no endobronchial lesion. There were clear secretions which were suctioned right away. With the help of forceps took endobronchial biopsies were taken from the right lower lobe endobronchial lesion. There was some evidence of bleeding which was controlled with cold saline and diluted epinephrine. BAL was taken from the same area. Bronchoscope was retracted and Endobronchial Ultrasound (EBUS) was introduced. Identified a abnormal hypoechoic areas in station 7 and station 11 R. Using [id number] were taken from these stations; there was some evidence of bleeding which is controlled with instillation of cold saline. After making sure there is no active bleeding, bronchoscope retracted and procedure terminated. Samples: 1. Endobronchial biopsies from right lower lobe endobronchial lesion. 2. Bronchoalveolar lavage was performed after wedging the bronchoscope at the entrance of the medial segment of right lower lobe. 30 mL of saline was instilled, fluid return was 15 mL. Bronchoalveolar lavage specimen was sent for cell count and differential, gram stain and culture, cytology B. EBUS guided Fine-needle aspiration biopsies were taken from station station 11 R, station 7. 1. Total of 5 passes were made using needle aspiration([id number]) from station 7; all the material was placed in formalin and sent for histopathology 2. Total of 4 passes were made using needle aspiration([id number]) from station 11 R; all the material was placed in formalin and sent for histopathology Complications: None.The patient was extubated and brought to the PACU in stable condition. Disposition: Patient is transferred to floor and can be discharged from pulmonary standpoint. Pt and are aware that I am going to call them to update final biopsy results once available. Related Problem List Diagnoses (1) Lung nodule seen on imaging study:
--- NOTE | 2023-03-29 14:33 | PM.DCS ---
Discharge Providers Date of Admission: 03/28/23 09:18 Date of Discharge: March 29, 2023 Attending Provider at Admission: Rudy Chin MD Attending Provider at Discharge: Rudy Chin MD Primary Care Provider: NAGI Venegas Diagnoses at Discharge Discharge Diagnosis (1) Atrial fibrillation with RVR: Status: Acute (2) Lung nodule seen on imaging study: Status: Acute (3) History of COPD: Status: Acute Reason for Visit Reason for Visit: R91.1 Hospital Course Hospital Course Kailee is an 87-year-old white female who presented to the hospital for bronchoscopy. She was found to be in atrial fibrillation with rapid ventricular rate. The procedure was not done on March 28 as intended. She instead was placed under observation status and adjustment of her medication occurred. Diltiazem was added. Metoprolol was increased. Cardiology and pulmonary both saw the patient. The following day on the heart rate was under controlled and she underwent underwent bronchoscopy with biopsy. This occurred without complication. After recovery, it was thought she could be discharged home with adjustment of her medications as noted on discharge list and close follow-up with pulmonary, and her primary care provider. Cardiology will see her at her regular follow-ups. She may resume her Xarelto tomorrow. She was given an opportunity to ask questions and agreed with the plan. Physical Exam Narrative: General exam no distress Neck is supple Cardiovascular irregular, irregular Lungs clear Abdomen soft Extremities no sinus clubbing edema Discharge Data Studies Completed and Pending Completed Studies During Hospitalization Category Date Time Status XR chest 1V portable [id number] Routine Exams 03/28/23 11:41 Completed Pending at discharge Category Date Time Status Bronch Wash Analysis Routine Lab 03/29/23 13:36 Results Bronch Washing Culture & GS Routine Lab 03/29/23 13:36 Received Cytology [PTH] Routine Pth 03/29/23 13:38 Received Pathology: Surgical [PTH] Routine Pth 03/29/23 14:23 Ordered Radiology Impressions Chest X-Ray 03/28/23 11:41 IMPRESSION: Stable exam. Small right pleural effusion increased cardiac silhouette again noted. Underlying COPD again noted. Laboratory Results WBC 5.78 10^3/uL (3.29-11.43) 03/29/23 03:40 RBC 3.77 10^6/uL (3.85-5.65) L 03/29/23 03:40 Hgb 11.80 g/dL (11.27-16.99) 03/29/23 03:40 Hct 38.8 % (36-47) 03/29/23 03:40 MCV 102.9 fl (85-98) H 03/29/23 03:40 MCH 31.3 pg (27-33) 03/29/23 03:40 MCHC 30.4 g/dL (30-55) 03/29/23 03:40 RDW 14.4 % (12.1-15.1) 03/29/23 03:40 Plt Count 163 10^3/cmm (157-399) 03/29/23 03:40 MPV 10.7 fL (7.4-10.4) H 03/29/23 03:40 Neut % (Auto) 64.5 % 03/29/23 03:40 Lymph % (Auto) 18.7 % 03/29/23 03:40 [place] % (Auto) 12.5 % 03/29/23 03:40 Eos % (Auto) 3.1 % 03/29/23 03:40 Baso % (Auto) 0.5 % 03/29/23 03:40 Neut # (Auto) 3.73 10^3/uL (1.8-7.7) 03/29/23 03:40 Lymph # (Auto) 1.1 10^3/uL (0.8-4.8) 03/29/23 03:40 [place] # (Auto) 0.7 10^3/uL (0.2-0.9) 03/29/23 03:40 Eos # (Auto) 0.2 10^3/uL (0.0-0.8) 03/29/23 03:40 Baso # (Auto) 0.0 10^3/uL (0.0-0.1) 03/29/23 03:40 Nucleated RBC % (auto) 0 % 03/29/23 03:40 Nucleated RBCs # 0.0 /100WBC 03/29/23 03:40 Sodium 140 mmol/L (136-145) 03/29/23 03:40 Potassium 4.5 mmol/L (3.5-5.1) 03/29/23 03:40 Chloride 102 mmol/L (98-107) 03/29/23 03:40 Carbon Dioxide 29 mmol/L (22-29) 03/29/23 03:40 Anion Gap 13.5 (5-19) 03/29/23 03:40 BUN 34 mg/dL (8-23) H 03/29/23 03:40 Creatinine 1.2 mg/dL (0.5-0.9) H 03/29/23 03:40 GFR Calculation Not Reportable 03/29/23 03:40 Glucose 118 mg/dL (65-115) H 03/29/23 03:40 POC Glucose 131 mg/dL (70-110) H 03/28/23 11:56 Calculated Osmolality 299 mOsm/kg (285-295) H 03/29/23 03:40 Calcium 9.7 mg/dL (8.5-10.5) 03/29/23 03:40 Magnesium 2.1 mg/dL (1.7-2.3) 03/28/23 10:25 Total Bilirubin 0.5 mg/dL (0.15-1.2) 03/28/23 10:25 AST 33 U/L (0-32) H 03/28/23 10:25 ALT 16 U/L (0-33) 03/28/23 10:25 Alkaline Phosphatase 88 U/L (35-105) 03/28/23 10:25 Total Protein 6.7 g/dL (6.6-8.7) 03/28/23 10:25 Albumin 3.5 g/dL (3.5-5.2) 03/28/23 10:25 Globulin 3.2 g/dL (1.3-4.6) 03/28/23 10:25 TSH 2.48 uIU/mL (0.27-4.20) 03/28/23 10:25 Bronch Specimen Source Right lower lobe 03/29/23 13:36 Bronchial Fluid Color Red 03/29/23 13:36 Bronchial Fluid Appearance Bloody (CLEAR) 03/29/23 13:36 Vitals Last Vital Signs Temp 97.7 F 03/29/23 03:50 Pulse 98 03/29/23 12:20 Resp 18 03/29/23 12:20 BP 109/72 03/29/23 13:15 Pulse Ox 93 03/29/23 12:20 O2 Del Method Nasal Cannula 03/29/23 12:20 O2 Flow Rate 3 03/29/23 12:20 Discharge Plan Discharge Patient Disposition: Home Condition: Stable Prescriptions: New diltiazem HCl 120 mg capsule,extended release 24hr 120 mg PO DAILY Qty: 30 0RF metoprolol tartrate 100 mg tablet 100 mg PO BID Qty: 60 0RF Continued levalbuterol tartrate [Xopenex HFA] 45 mcg/actuation HFA aerosol inhaler 2 inh inhalation Q6H PRN (Reason: shortness of breath or wheezing) Qty: 15 6RF guaifenesin [Mucinex Fast-Max Chest-Congest] 100 mg/5 mL liquid 200 mg PO Q4H PRN (Reason: cough) Qty: 473 3RF cholecalciferol (vitamin D3) 50 mcg (2,000 unit) capsule 50 mcg PO DAILY chlorhexidine gluconate [Peridex] 0.12 % mouthwash 15 ml buccal BID 7 Days Qty: 200 0RF Xarelto 20 mg tablet 20 mg PO DAILY Qty: 90 3RF Rx Instructions: must administer with evening meal levalbuterol HCl 0.63 mg/3 mL solution for nebulization 0.63 mg inhalation TID PRN (Reason: shortness of breath or wheezing) Qty: 90 3RF Lasix 40 mg tablet 40 mg PO DAILY Qty: 90 1RF potassium chloride 20 mEq tablet,ER particles/crystals 40 meq PO DAILY Qty: 90 1RF Trelegy Ellipta 100-62.5-25 mcg blister with device 1 inh inhalation DAILY Qty: 60 3RF Rx Instructions: , Symptoms uncontrolled with other treatment trials. Discontinued metoprolol succinate 50 mg tablet extended release 24 hr 50 mg PO DAILY Qty: 90 3RF Discharge Orders: Discharge Order (Routine); Ordered 03/29/23 Ordered By: Rudy Chin Referrals: Aundrea Jerry FNP [Primary Care Provider] - 04/04/23 2:00 pm Discharge Diet: Usual diet Discharge Activity: Increase activity as tolerated Patient Instructions: Opioid Safety Activity Restrictions/Additional Instructions: Resume your home oxygen Pulmonary will call you regarding follow-up Follow-up with your primary care provider 3 to 5 days You may start your rivaroxaban tomorrow Note that you have changes in your medication for control of heart rate. Your metoprolol was changed to 100 mg twice daily. Diltiazem extended release has been added at 120 mg daily. Return for any concerns Discharge Attestations Time Spent in Discharge Care*: greater than 30 min Quality Metrics Clinical Quality Measures [ No reported AMI, CVA or VTE this stay] Coding Level of Care Code 35735 Total time (in minutes) for Discharge: 31 Diagnoses Atrial fibrillation with RVR I48.91 Lung nodule seen on imaging study R91.1 History of COPD Z87.09 Time Spent (min) 35
--- NOTE | 2023-03-29 15:10 | ANE.PACU2 ---
Inpatient post-anesthesia follow up: Airway intact: Yes Vital signs: Temperature 97.5 F Pulse Rate 86 Respiratory Rate 22 Blood Pressure 126/90 Pulse Oximetry 97 Oxygen Delivery Me thod Nasal Cannula Oxygen Flow Rate 3 Fraction of Inspir ed Oxygen Hydration adequate: Yes Nausea and vomiting: No Pain level: 1 Mental status: Baseline
[2023-03-29 15:22] LABS: Total Cells Counted Bronch 100
[2023-03-29 15:23] LABS: PATH Referral Yes
[2023-04-07 13:01] LABS: PD-L1 (Clone 22C3) by IHC BBPL See Report
== END 2023-03-29 17:20 | disposition home or self-care (01) ==
LOC: CSU 09:24
PROVIDERS: Internal Medicine Pulmonary Disease; Admitting Provider Internal Medicine; PCP Nurse Practitioner Family; Visit Provider Internal Medicine
PROC: BB4BZZZ Ultrasonography of Pleura (ICD-10-PCS; principal; 2023-03-29 13:00)
PROC: 0BJ08ZZ Inspection of Tracheobronchial Tree, Via Natural or Artificial Opening Endoscopic (ICD-10-PCS; CPT 31622; 2023-03-29 13:00)
DX: C34.31 Malignant neoplasm of lower lobe, right bronchus or lung (principal); I11.0 Hypertensive heart disease with heart failure; I50.9 Heart failure, unspecified; E78.5 Hyperlipidemia, unspecified; Z86.718 Personal history of other venous thrombosis and embolism; J43.9 Emphysema, unspecified; I48.91 Unspecified atrial fibrillation; Z87.891 Personal history of nicotine dependence; Z99.81 Dependence on supplemental oxygen; I25.10 Atherosclerotic heart disease of native coronary artery without angina pectoris
CPT/HCPCS: 31624; 31625; 31645; 31652; 36415; 36416; 71045; 80048; 80053; 80503; 82962; 83735; 84443; 85025; 87070; 87205; 88112; 88305; 88309; 88341; 88342; 89050; 93005; 96372; G0378; J0171; J1100; J1644; J2405; J2704; J3010; J3490; J7030

== ENCOUNTER 2023-04-17 11:17 | Oncology outpatient (recurring) (ONCR) | payer MEDICARE, OTHER, SELFPAY ==
[2023-04-17 12:56] LABS: Basophils # 0.1 10^3/uL (0.0-0.1); Basophils % 0.6 %; Eosinophils # 0.1 10^3/uL (0.0-0.8); Eosinophils % 1.1 %; Hematocrit 46.5 % (36-47); Lymphocytes # 0.9 10^3/uL (0.8-4.8); Lymphocytes % 9.7 %; Mean Corpuscular HGB Conc 30.5 g/dL (30-55); Mean Corpuscular Hemoglobin 31.3 pg (27-33); Mean Corpuscular Volume 102.6 fl (85-98); Mean Platelet Volume 10.9 fL (7.4-10.4); Monocytes # 0.5 10^3/uL (0.2-0.9); Monocytes % 5.2 %; Neutrophils # 7.93 10^3/uL (1.8-7.7); Neutrophils % 82.9 %; Nucleated Red Blood Cells % 0 %; Platelet Count 265 10^3/cmm (157-399); Red Blood Count 4.53 10^6/uL (3.85-5.65); Red Cell Distribution Width 13.9 % (12.1-15.1); White Blood Count 9.58 10^3/uL (3.29-11.43)
[2023-04-17 13:25] LABS: Alanine Aminotransferase 20 U/L (0-33); Alkaline Phosphatase 120 U/L (35-105); Anion Gap 15.7 (5-19); Aspartate Amino Transferase 33 U/L (0-32); Blood Urea Nitrogen 35 mg/dL (8-23); Calcium 10.2 mg/dL (8.5-10.5); Carbon Dioxide 30 mmol/L (22-29); Chloride 99 mmol/L (98-107); Creatinine Clr Calc Pharmacy 20.3709; Glucose 138 mg/dL (65-115); Iron 98 ug/dL (37-145); Osmolality Calculated 300 mOsm/kg (285-295); Percent Saturation 28.4 % (20-50); Potassium 4.7 mmol/L (3.5-5.1); Sodium 140 mmol/L (136-145); Total Bilirubin 0.7 mg/dL (0.15-1.2); Total Iron Binding Capacity 345 mcg/dl; Unsaturated Iron Binding 247 ug/dL (112-347)
[2023-04-17 13:50] LABS: Hepatitis A Antibody IgM Non-Reactive (Nonreactive); Hepatitis B Core AB, Total Non-Reactive (Nonreactive); Hepatitis B Surface AB < 3.5 (11.5-1000); Hepatitis B Surface Antigen Non-Reactive (Nonreactive); Hepatitis C Virus Antibody Non-Reactive (Nonreactive)
[2023-04-17 17:29] LABS: Folate Level > 20.0 ng/mL (4.8-37.3)
[2023-04-17 17:48] LABS: Vitamin B12 458 pg/mL (232-1245)
[2023-04-21 09:31] LABS: Methylmalonic Acid 469 nmol/L (87-318)
[2023-04-21 13:35] LABS: Soluble Transferrin Receptor 2.33 mg/L (0.76-1.76)
== END 2023-04-27 23:59 | disposition home or self-care (01) ==
PROVIDERS: Internal Medicine; PCP Nurse Practitioner Family; Visit Provider Nurse Practitioner Family
DX: C34.31 Malignant neoplasm of lower lobe, right bronchus or lung (principal); J44.9 Chronic obstructive pulmonary disease, unspecified; I10 Essential (primary) hypertension; I48.91 Unspecified atrial fibrillation; Z99.81 Dependence on supplemental oxygen; Z87.891 Personal history of nicotine dependence; Z79.01 Long term (current) use of anticoagulants; Z79.899 Other long term (current) drug therapy; Z53.9 Procedure and treatment not carried out, unspecified reason; Z11.59 Encounter for screening for other viral diseases
CPT/HCPCS: 36415; 80053; 82607; 82746; 83540; 83550; 83921; 84238; 85025; 86705; 86706; 86709; 86803; 87340; 99205

== ENCOUNTER → 2023-05-02 10:10 | Outpatient (BNVA) | payer MEDICARE, OTHER, SELFPAY | PROVIDERS: PCP Nurse Practitioner Family; Visit Provider Anesthesiology Pain Medicine | DX: C34.92 Malignant neoplasm of unspecified part of left bronchus or lung (principal); M54.9 Dorsalgia, unspecified; R07.89 Other chest pain; R07.81 Pleurodynia; M79.605 Pain in left leg; J43.2 Centrilobular emphysema; Z79.899 Other long term (current) drug therapy | CPT/HCPCS: 99214 ==

== ENCOUNTER 2023-05-08 15:25 | Outpatient (CLI) | payer MEDICARE, OTHER, SELFPAY ==
[2023-05-08] MEDS: iohexol 350 mg/mL 500 mL Btl (per mL) PO (16:20)
--- NOTE | 2023-05-08 17:00 | CTR_ITS ---
PROCEDURE INFORMATION: Exam: CT Chest With Contrast; Diagnostic Exam date and time: 05/08/2023 4:53 PM Age: 87 years old Clinical indication: Abnormal findings; Abnormal radiologic finding of the abdomen; Radiologic exam and body structure: Pet 01/2023; Lung mass or nodule; Not specified; Prior surgery; Surgery date: 6+ months; Surgery type: Left breast, RT lung nodule, hyst TECHNIQUE: Imaging protocol: Diagnostic computed tomography of the chest with contrast. Radiation optimization: All CT scans at this facility use at least one of these dose optimization techniques: automated exposure control; mA and/or kV adjustment per patient size (includes targeted exams where dose is matched to clinical indication); or iterative reconstruction. Contrast material: OMNIPAQUE 350; Contrast volume: 85 ml; Contrast route: INTRAVENOUS (IV); COMPARISON: CT chest [facility] [id number] 09/05/2022 10:54 AM RADIATION DOSE METRICS: Total DLP (mGy-cm): 410.5 FINDINGS: Thyroid: Grossly unremarkable. Lungs: No focal consolidation. Small right-sided pleural effusion, increased in size in comparison to prior. Nodular pleural thickening in the right lower lobe is again visualized, grossly unchanged. Irregular left upper lobe nodular opacity, slightly more solid-appearing in comparison to prior. Moderate-severe centrilobular emphysematous changes. Pleural spaces: No pleural effusion. No pneumothorax. Heart: Moderate cardiomegaly with biatrial dilatation. No pericardial effusion. Mediastinal space: Trachea and central airways are grossly patent. No evidence of mediastinal mass or hematoma. Lymph nodes: The previously described right infrahilar mass is slightly enlarged in comparison to prior measuring up to 4.1 cm transverse by 2.8 cm AP by 4 cm craniocaudal. Vasculature: Moderate atherosclerosis without aneurysmal dilatation of the thoracic aorta. No evidence of dissection. Though this study is not tailored to evaluate for pulmonary thromboembolism, there is no evidence of PE within limitations of respiratory motion. Bones/joints: No evidence of acute fracture or aggressive osseous lesion. Soft tissues: No fluid collection or hematoma in the superficial soft tissues. PROCEDURE INFORMATION: Exam: CT Abdomen And Pelvis With Contrast Exam date and time: 05/08/2023 4:53 PM Age: 87 years old Clinical indication: Abnormal findings; Abnormal radiologic finding of the abdomen; Radiologic exam and body structure: Pet 01/2023; Lung mass or nodule; Not specified; Prior surgery; Surgery date: 6+ months; Surgery type: Left breast, RT lung nodule, hyst TECHNIQUE: Imaging protocol: Computed tomography of the abdomen and pelvis with contrast. Radiation optimization: All CT scans at this facility use at least one of these dose optimization techniques: automated exposure control; mA and/or kV adjustment per patient size (includes targeted exams where dose is matched to clinical indication); or iterative reconstruction. Contrast material: OMNIPAQUE 350; Contrast volume: 85 ml; Contrast route: INTRAVENOUS (IV); COMPARISON: CT chest [facility] [id number] 09/05/2022 10:54 AM RADIATION DOSE METRICS: Total DLP (mGy-cm): 410.5 FINDINGS: Liver: Hepatic steatosis. No evidence of focal hepatic lesion. Gallbladder and bile ducts: Unremarkable. No intra-hepatic or extra-hepatic biliary dilatation. Pancreas: Mildly atrophic. There are cystic lesions in the pancreatic body and tail measuring approximately 16 mm and 8 mm respectively. Spleen: Unremarkable. Adrenal glands: Nodular thickening of the left adrenal gland has increased since the prior PET-CT. Right adrenal gland is unremarkable. Kidneys and ureters: Bilateral cortical parenchymal thinning. Otherwise no renal parenchymal abnormality. No hydronephrosis or ureteral stone. Stomach and bowel: Diverticulosis without evidence of acute diverticulitis. No bowel obstruction or perienteric inflammatory changes. Appendix: Normal appendix. Intraperitoneal space: No evidence of free air or fluid collection. Vasculature: Extensive aortobiiliac atherosclerosis without aneurysmal dilatation or dissection. 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 No evidence of acute thrombosis. No evidence of IVC thrombus. The portal vein, SMV and splenic veins are grossly patent. Lymph nodes: No adenopathy. Urinary bladder: Grossly unremarkable. Reproductive: Status post hysterectomy. Bones/joints: No evidence of acute fracture or aggressive osseous lesion. Soft tissues: No evidence of fluid collection or hematoma in the superficial soft tissues. CT/CT chest abdpel w/*[id number] IMPRESSION: 1. Small right-sided pleural effusion, increased in size in comparison to prior exam. Consider correlation with pleural fluid analysis to assess for malignant effusion. 2. Right infrahilar mass is slightly enlarged in comparison to prior PET-CT from March 15, 2023. 3. Spiculated left lower lobe pulmonary nodule is slightly more solid-appearing in comparison to prior PET-CT. 4. Moderate cardiomegaly with biatrial dilatation. 5. Moderate-severe emphysematous changes. Correlation with patient history is recommended to evaluate whether the patient may benefit from annual outpatient low-dose screening CT of the chest. IMPRESSION: 1. Worsening nodular thickening of the left adrenal gland, nonspecific. Otherwise no evidence of metastatic disease in the abdomen or pelvis. 2. Cystic lesions in the pancreatic body and tail. If not previously characterized, this can be further evaluated with nonemergent MRI to exclude mucinous neoplasm. 3. 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
[2023-05-08] MEDS: iohexol 350 mg/mL 500 mL Btl (per mL) IV (17:04)
== END 2023-05-08 15:26 | disposition home or self-care (01) ==
LOC: RAD 15:25
PROVIDERS: PCP Nurse Practitioner Family; Visit Provider Internal Medicine
DX: R91.1 Solitary pulmonary nodule (principal); R91.8 Other nonspecific abnormal finding of lung field; R92.8 Other abnormal and inconclusive findings on diagnostic imaging of breast; J90 Pleural effusion, not elsewhere classified; I51.7 Cardiomegaly; K86.9 Disease of pancreas, unspecified; I70.8 Atherosclerosis of other arteries; R93.5 Abnormal findings on diagnostic imaging of other abdominal regions, including retroperitoneum
CPT/HCPCS: 71260; 74177; Q9967